=== PATIENT | male | born 1970 | race Caucasian/White ===

== ENCOUNTER 2017-07-27 10:30 | Inpatient (IN) | payer BC ==
[2017-07-27 13:43] VITALS: BMI 34.4
[2017-07-27 13:46] LABS: Basophils % (A) 0 %; Eosinophils # (A) 0.3 k/uL (0-0.7); Eosinophils % (A) 2 %; HCT 41.7 % (39.0-53.0); HGB 13.5 gm/dL (13.0-17.5); Lymphocytes # (A) 2.9 k/uL (1.0-4.8); Lymphocytes % (A) 21 %; MCH 29.2 pg (25.0-35.0); MCHC 32.5 g/dL (31.0-37.0); MCV 90.1 fL (80.0-100.0); Mean Platelet Volume 7.3; Monocytes # (A) 1.1 k/uL (0-1.0); Monocytes % (A) 8 %; Neutrophils # (A) 9.2 k/uL (1.3-7.7); Neutrophils % (A) 67 %; Platelet Count 570 k/uL (150-450); RBC 4.63 m/uL (4.30-5.90); RDW 13.3 % (11.5-15.5); WBC 13.6 k/uL (3.8-10.6)
[2017-07-27 13:54] LABS: ALT 45 U/L (21-72); AST 27 U/L (17-59); Albumin 3.4 g/dL (3.5-5.0); Alkaline Phosphatase 62 U/L (38-126); Anion Gap 13 mmol/L; Blood Urea Nitrogen 11 mg/dL (9-20); Calcium 8.6 mg/dL (8.4-10.2); Carbon Dioxide 29 mmol/L (22-30); Chloride 97 mmol/L (98-107); Glucose 109 mg/dL (74-99); Potassium 3.6 mmol/L (3.5-5.1); Sodium 139 mmol/L (137-145)
[2017-07-27] MEDS ORDERED: cefTRIAXone IN SWFI 1,000 MG/10 ML SYRINGE IVP SCH (14:30)
--- NOTE | 2017-07-27 14:30 | P.HPIM ---
History of Present Illness H&P Date: 07/27/17 Chief Complaint: coughing, flu like symptoms 47-year-old male who presented to his primary care physician, Dr. Gould's office today with a chief complaint of flulike symptoms, coughing, lethargy, and dry heaving. Patient states his symptoms started the Thursday before Mothers Day, which was 07/14/2017. Patient reports he took his son to urgent care on 07/19/2017 and his son was diagnosed with Influenza A. He tested negative at that time but was given a Tamiflu prescription. Patient finished Tamiflu regimen last week. The patient denies nausea. He reports dry heaves due to coughing. He states he has a lot of belching after he dry heaves. He states he was having fevers of 102-103 degrees F last week but reports he has been afebrile for the last 48 hours. Patient states he has a frequent cough with occasional sputum production. He states at times he has a hard time bringing up the sputum. He admits to decreased oral intake and states "everything tastes bad right now". Patient states he has been trying to drink water and Gatorade but reports it is probably not enough. Chest x-ray completed in Dr. Gould's office revealed large right middle lobe pneumonia. Influenza testing was completed and patient was positive for influenza A. He received 1 gram Rocephin IM at the office and blood cultures were obtained. The patient has a history of ITP and underwent splenectomy in 2006. His states he follows up with Dr. Luna and requires platelet transfusions approximately every 3-4 years. reports last transfusion was approximately three years ago. He was directly admitted to [facility]. Consultations were placed to Dr. Merino, pulmonary and Dr. Maria, infectious disease. Review of Systems GENERAL: Reports fevers of 102-103. Afebrile for last 24 hours per patient. EYES: Denies blurred vision. Denies vision changes. Denies eye pain. EARS, NOSE, MOUTH, & THROAT: Denies headache. Denies sore throat. Denies ear pain. RESPIRATORY: Positive for cough with occasional sputum production. Positive for occasional shortness of breath. Denies hemoptysis. CARDIOVASCULAR: Denies chest pain or pressure. Denies palpitations. Denies arrhythmias. GASTROINTESTINAL: Positive for mild abdominal pain that he relates to dry heaving. Denies diarrhea. Denies constipation. Denies blood in the stool. GENITOURINARY: Denies urinary frequency. Denies burning. Denies dysuria. Denies cloudy urine. Denies blood in the urine. MUSCULOSKELETAL: Denies myalgias. Denies joint swelling. Denies decreased range of motion beyond patients baseline. INTEGUMENTARY: Denies pruitis. Denies rash. PSYCHIATRIC: Denies suicidal or homicial ideations. ENDOCRINE: Positive for decreased oral intake. Denies weight change. Denies polydipsia. Denies polyuria. HEMATOLOGIC: Positive for history of ITP. Requires platelet transfusion every 3- 4 years per . Past Medical History - Past Family History Father Family Medical History: AFIB, AICD/Pacemaker, Cancer Additional Family Medical History / Comment(s): Prostate CA, skin CA Medications and Allergies Home Medications Medication Instructions Recorded Confirmed Type No Known Home Medications [No 07/27/17 07/27/17 History Known Home Medications] Allergies Allergy/AdvReac Type Severity Reaction Status Date / Time sulfamethoxazole Allergy Rash/Hives Verified 07/27/17 14:11 [From Bactrim] trimethoprim [From Bactrim] Allergy Rash/Hives Verified 07/27/17 14:11 Physical Exam GENERAL: This is a 47-year-old in no apparent distress at the time of examination, but appears to be feeling unwell. Pleasant and cooperative. HEENT: Head is atraumatic, normocephalic. Pupils are equal, round, and reactive to light. Sclerae anicteric. Conjunctivae are clear. Mucus membranes of the mouth are moist. Neck is supple. RESPIRATORY: Rhonchi noted. No crackles or wheezing auscultated. No use of accessory muscles. Patient maintaining oxygen saturation greater than 92% on room air. No chest wall tenderness is noted on palpation or with deep breathing. CARDIOVASCULAR: Regular rate and rhythm. S1 and S2 noted. No systolic or diastolic murmur auscultated. No JVD noted. No S3 or S4 noted. GASTROINTESTINAL: No distention noted. Abdomen soft and round. Normal active bowel sounds auscultated x 4 quadrants. No pain or tenderness noted upon palpation. INTEGUMENTARY: No cyanosis. No jaundice. No rashes noted. No cellulitis noted. EXTREMITIES: 2+ peripheral pulses. No evidence of peripheral edema. No calf tenderness noted. NEUROLOGIC: Cranial nerves II-XII intact. PSYCHIATRIC: Awake, alert, and oriented X 3. Appropriate affect. Intact judgement and insight. Results CBC & Chem 7: 07/27/17 13:35 07/27/17 13:35 Assessment and Plan Plan: ASSESSMENT: Right middle lobe pneumonia, present on admission, sputum culture pending Positive influenza A, completed Tamiflu course outpatient Suspected sepsis, secondary to pneumonia and influenza A History of ITP with splenectomy in 2006, follows up with Dr. Luna Obesity: BMI 34.5 PLAN: Consult pulmonary, Dr. Merino Consult infectious disease, Dr. Maria Case discussed with Dr. Maria. He would like blood cultures repeated, sputum culture, rocephin 2mg daily, and levaquin 500mg daily Patient already received Rocephin at PCP office today, will begin tomorrow. Levaquin can begin today. Patient completed Tamiflu as prescribed by urgent care Droplet precautions Mucinex to help loosen secretions Regular diet IVF at 100cc/hr CBC, CMP, and lactic acid STAT Home meds as appropriate-patient denies any home medications Monitor labs GI prophylaxis: Protonix 40 mg PO Daily DVT prophylaxis: Encourage ambulation. SCDs to bilateral lower extremities while in bed Monitor vital signs and address as appropriate Discharge planning: Patient to return home when stable Further recommendations pending patient's course Nurse practitioner note has been reviewed by physician. Signing provider agrees with the documented findings, assessment, and plan of care.
[2017-07-27] MEDS: ACETAMINOPHEN TAB 325 MG TAB PO PRN ×2 (14:41→21:57)
[2017-07-27] MEDS ORDERED: cefTRIAXone IN SWFI 2,000 MG/20 ML SYRINGE IVP SCH (15:00)
[2017-07-27] MEDS ORDERED: AZITHROMYCIN 500 MG in SODIUM CHLORIDE 0.9% 250 ML IVPB SCH (15:00)
[2017-07-27] MEDS ORDERED: LEVOFLOXACIN 500MG-D5W PMX 500 MG in DEXTROSE/WATER 1 100ML.BAG IVPB SCH (16:00)
--- NOTE | 2017-07-27 17:07 | P.CNPUL ---
History of Present Illness Consult date: 07/27/17 Reason for consult: dyspnea, cough, pneumonia, abnormal CXR/CT Chief complaint: Cough shortness of breath and a spiking fever History of present illness: 47-year-old male who was seen eval examined on fifth floor this patient has a significant history of splenectomy and ITP patient has not been feeling well for almost 2 weeks of increased cough congestion shortness of breath patient has a significant exposure influenza A however initially was negative but did receive a course of Tamiflu, patient continued to do not very well with 3 days prior to coming hospital had a spiking fever up to 102 with those problems was seen evaluated examined at primary care office where a chest x-ray were performed revealed large right midlung field consolidation patient has been admitted to hospital for further evaluation and intervention and treatment, patient did receive a dose of Rocephin in primary care's office, further workup and office revealed influenza A to be positive Patient denies any seizure-like activity loss of consciousness hemiparesis does have significant cough however denies any hemoptysis denies any chest pain or radiation of pain does have some abdominal discomfort and thoracic wall discomfort due to excessive coughing and heaving, denies any bowel or bladder dysfunction, due to ITP had a platelet transfusion over 3 years ago Review of Systems All systems: negative Past Medical History Additional Past Medical History / Comment(s): ITP History of Any Multi-Drug Resistant Organisms: None Reported Additional Past Surgical History / Comment(s): splenectomy 2006, tonsils removed , Past Anesthesia/Blood Transfusion Reactions: No Reported Reaction Past Psychological History: No Psychological Hx Reported Smoking Status: Never smoker - Past Family History Father Family Medical History: AFIB, AICD/Pacemaker, Cancer Additional Family Medical History / Comment(s): Prostate CA, skin CA Medications and Allergies Home Medications Medication Instructions Recorded Confirmed Type No Known Home Medications [No 07/27/17 07/27/17 History Known Home Medications] Allergies Allergy/AdvReac Type Severity Reaction Status Date / Time sulfamethoxazole Allergy Rash/Hives Verified 07/27/17 14:11 [From Bactrim] trimethoprim [From Bactrim] Allergy Rash/Hives Verified 07/27/17 14:11 Physical Exam Vitals: Vital Signs Temp Pulse Resp BP Pulse Ox 07/27/17 16:00 90 16 07/27/17 15:43 93 L 07/27/17 14:37 100.3 F H 90 16 139/86 98 07/27/17 13:26 99.4 F 97 16 125/86 97 07/27/17 13:17 97 Intake and Output 07/27/17 07/27/17 07/27/17 06:59 14:59 22:59 Other: Voiding Method Toilet Weight 142.428 kg - Constitutional General appearance: cooperative, disheveled, mild distress, obese - EENT Eyes: anicteric sclerae, EOMI, PERRLA, normal appearance ENT: normal oropharynx Ears: bilateral: normal - Neck Neck: normal ROM Carotids: bilateral: upstroke normal, bruit absent Thyroid: bilateral: normal size - Respiratory Respiratory: right: rales, rhonchi - Cardiovascular Heart sounds: normal: S1, S2 - Gastrointestinal General gastrointestinal: normal bowel sounds, soft - Integumentary Integumentary: normal, normal turgor - Neurologic Neurologic: CNII-XII intact - Musculoskeletal Musculoskeletal: gait normal, generalized weakness, strength equal bilaterally - Psychiatric Psychiatric: A&O x's 3, appropriate affect, intact judgment & insight Results - Laboratory Findings CBC and BMP: 07/27/17 13:35 07/27/17 13:35 Abnormal lab findings: Abnormal Labs 07/27/17 07/27/17 13:35 13:35 WBC 13.6 H Plt Count 570 H Neutrophils # 9.2 H Monocytes # 1.1 H Chloride 97 L Glucose 109 H Total Protein 6.0 L Albumin 3.4 L - Diagnostic Findings Chest x-ray: report reviewed Assessment and Plan Assessment: Sepsis associated with right mid lung field pneumonia Right midlung field pneumonia may very well be associated with staph aureus or streptococcal pneumonia however gram-negative involvement cannot be excluded Influenza A pneumonia ITP History of splenectomy Plan: Gentle rehydration High-dose IV Rocephin Repeat chest x-ray tomorrow Bronchodilators as needed Further recommendations pending plan of care as per clinical response of the patient O follow clinical course closely Time with Patient: Greater than 30
[2017-07-27] MEDS ORDERED: OSELTAMIVIR 75 MG CAP PO SCH (21:00)
[2017-07-27] MEDS: guaiFENesin 600 MG TABLET.ER PO SCH (21:49)
[2017-07-28] MEDS: ALBUTEROL NEBULIZED 2.5 MG/3 ML INHALATION PRN (04:46)
[2017-07-28] MEDS: ACETAMINOPHEN TAB 325 MG TAB PO PRN ×2 (05:04→12:56)
[2017-07-28] MEDS: SODIUM CHLORIDE 0.9% 1,000 ML IV SCH ×4 (05:05→20:45)
[2017-07-28] MEDS: PANTOPRAZOLE 40 MG TABLET PO SCH (07:33)
[2017-07-28] MEDS: guaiFENesin 600 MG TABLET.ER PO SCH ×2 (07:33→21:36)
--- NOTE | 2017-07-28 07:52 | XR ---
EXAMINATION TYPE: XR chest 2V DATE OF EXAM: 07/28/2017 COMPARISON: NONE HISTORY: Shortness of breath and pneumonia TECHNIQUE: Frontal and lateral views of the chest are obtained. FINDINGS: Increased attenuation is present in the right upper lobe. No pneumothorax or pleural effus ion. Patchy basilar density also noted, lung volumes are low. Cardiac mediastinal silhouette, pulmona ry vascularity and ailyn are within normal limits. IMPRESSION: Findings may be indicative of pneumonia, basilar atelectasis, difficult to exclude small effusion, follow-up to resolution.
[2017-07-28] MEDS ORDERED: ZOLPIDEM 5 MG TAB PO PRN (08:41)
[2017-07-28] MEDS ORDERED: cefTRIAXone IN SWFI 2,000 MG/20 ML SYRINGE IVP SCH (09:00)
[2017-07-28 09:28] LABS: Basophils % (A) 0 %; Eosinophils # (A) 0.2 k/uL (0-0.7); Eosinophils % (A) 2 %; HCT 38.9 % (39.0-53.0); HGB 12.8 gm/dL (13.0-17.5); Lymphocytes # (A) 1.8 k/uL (1.0-4.8); Lymphocytes % (A) 14 %; MCH 29.6 pg (25.0-35.0); MCHC 32.9 g/dL (31.0-37.0); Mean Platelet Volume 7.3; Monocytes # (A) 0.9 k/uL (0-1.0); Monocytes % (A) 7 %; Neutrophils # (A) 9.8 k/uL (1.3-7.7); Neutrophils % (A) 76 %; Platelet Count 571 k/uL (150-450); RBC 4.32 m/uL (4.30-5.90); RDW 13.3 % (11.5-15.5); WBC 12.9 k/uL (3.8-10.6)
--- NOTE | 2017-07-28 09:34 | P.PN ---
Subjective Progress Note Date: 07/28/17 47-year-old male who presented to his primary care physician, Dr. Gould's office today with a chief complaint of flulike symptoms, coughing, lethargy, and dry heaving. Patient states his symptoms started the Thursday before Day, which was 07/14/2017. Patient reports he took his son to urgent care on 07/19/2017 and his son was diagnosed with Influenza A. He tested negative at that time but was given a Tamiflu prescription. Patient finished Tamiflu regimen last week. The patient denies nausea. He reports dry heaves due to coughing. He states he has a lot of belching after he dry heaves. He states he was having fevers of 102-103 degrees F last week but reports he has been afebrile for the last 48 hours. Patient states he has a frequent cough with occasional sputum production. He states at times he has a hard time bringing up the sputum. He admits to decreased oral intake and states "everything tastes bad right now". Patient states he has been trying to drink water and Gatorade but reports it is probably not enough. Chest x-ray completed in Dr. Gould's office revealed large right middle lobe pneumonia. Influenza testing was completed and patient was positive for influenza A. He received 1 gram Rocephin IM at the office and blood cultures were obtained. The patient has a history of ITP and underwent splenectomy in 2006. His states he follows up with Dr. Luna and requires platelet transfusions approximately every 3-4 years. reports last transfusion was approximately three years ago. He was directly admitted to [facility]. Consultations were placed to Dr. Merino, pulmonary and Dr. Maria, infectious disease. 07/28/2017 Patient seen and examined at the bedside on rounds with Dr. Gould. Patient is awake and alert. Sitting up at the bedside. Patient states he had a "rough night " and was unable to sleep very much due to coughing. He is requesting something to help him sleep tonight. Patient is afebrile this morning. Blood pressure 124/ 68. Oxygen saturation greater than 92% on room air. Incentive spirometer is at the bedside and patient is using 10 times an hour. Pulling at least 2000cc. Blood cultures and sputum cultures are pending. He remains on Levaquin and Rocephin. Objective - Vital Signs Vital signs: Vital Signs Temp 97.8 F 07/28/17 08:18 Pulse 89 07/28/17 08:18 Resp 20 07/28/17 08:18 BP 124/68 07/28/17 08:18 Pulse Ox 93 L 07/28/17 08:18 Intake & Output 07/27/17 07/28/17 07/28/17 18:59 06:59 18:59 Intake Total 2200 Balance 2200 Weight 142.428 kg Intake: Intake, IV Titration 1600 Amount Sodium Chloride 0.9% 1, 1600 000 ml @ 100 mls/hr IV . Q10H WENDIE Rx#:[id number] Oral 600 Other: Voiding Method Toilet Toilet # Voids 2 - Exam GENERAL: This is a 47-year-old in no apparent distress at the time of examination, but appears to be feeling unwell. Pleasant and cooperative. HEENT: Head is atraumatic, normocephalic. Pupils are equal, round, and reactive to light. Sclerae anicteric. Conjunctivae are clear. Mucus membranes of the mouth are moist. Neck is supple. RESPIRATORY: Diminished lung sounds over right middle lung. No crackles or wheezing auscultated. No use of accessory muscles. Patient maintaining oxygen saturation greater than 92% on room air. No chest wall tenderness is noted on palpation or with deep breathing. CARDIOVASCULAR: Regular rate and rhythm. S1 and S2 noted. No systolic or diastolic murmur auscultated. No JVD noted. No S3 or S4 noted. GASTROINTESTINAL: No distention noted. Abdomen soft and round. Normal active bowel sounds auscultated x 4 quadrants. No pain or tenderness noted upon palpation. INTEGUMENTARY: No cyanosis. No jaundice. No rashes noted. No cellulitis noted. EXTREMITIES: 2+ peripheral pulses. No evidence of peripheral edema. No calf tenderness noted. NEUROLOGIC: Cranial nerves II-XII intact. PSYCHIATRIC: Awake, alert, and oriented X 3. Appropriate affect. Intact judgement and insight. - Labs CBC & Chem 7: 07/27/17 13:35 07/27/17 13:35 Labs: Abnormal Lab Results - Last 24 Hours (Table) 07/27/17 07/27/17 Range/Units 13:35 13:35 WBC 13.6 H (3.8-10.6) k/uL Plt Count 570 H (150-450) k/uL Neutrophils # 9.2 H (1.3-7.7) k/uL Monocytes # 1.1 H (0-1.0) k/uL Chloride 97 L (98-107) mmol/L Glucose 109 H (74-99) mg/dL Total Protein 6.0 L (6.3-8.2) g/dL Albumin 3.4 L (3.5-5.0) g/dL Assessment and Plan Plan: ASSESSMENT: Right middle lobe pneumonia, present on admission, sputum culture pending Positive influenza A, completed Tamiflu course outpatient Suspected sepsis, secondary to pneumonia and influenza A History of ITP with splenectomy in 2006, follows up with Dr. Luna Obesity: BMI 34.5 PLAN: Pulmonary on consult. Appreciate recommendations and input Infectious disease, Dr. Maria, on consult. Appreciate recommendations and input Antibiotic regimen per Dr. Maria: Currently on Rocephin and Levaquin. Await results of blood cultures and sputum cultures Patient completed Tamiflu as prescribed by urgent care Droplet precautions Mucinex to help loosen secretions IVF at 100cc/hr Ambien 5mg HS PRN for insomnia Patient requesting cough suppressant. Patient encouraged to cough to help eliminate sputum buildup. Toradol PRN for pain/discomfort IS 10 times an hour while awake Home meds as appropriate-patient denies any home medications Monitor labs GI prophylaxis: Protonix 40 mg PO Daily DVT prophylaxis: Encourage ambulation. SCDs to bilateral lower extremities while in bed Monitor vital signs and address as appropriate Discharge planning: Patient to return home when stable Further recommendations pending patient's course Nurse practitioner note has been reviewed by physician. Signing provider agrees with the documented findings, assessment, and plan of care.
[2017-07-28 09:36] LABS: Anion Gap 10 mmol/L; Blood Urea Nitrogen 8 mg/dL (9-20); Calcium 7.9 mg/dL (8.4-10.2); Carbon Dioxide 27 mmol/L (22-30); Chloride 100 mmol/L (98-107); Glucose 124 mg/dL (74-99); Potassium 3.9 mmol/L (3.5-5.1); Sodium 137 mmol/L (137-145)
[2017-07-28] MEDS ORDERED: VANCOMYCIN IV PER PHARMACY 1 EACH MISC MISCELLANE PRN (13:38)
[2017-07-28] MEDS ORDERED: BENZONATATE 100 MG CAP PO PRN (14:00)
[2017-07-28] MEDS: KETOROLAC 30 MG/ML 1 ML VIAL IVP PRN (14:15)
[2017-07-28] MEDS: LEVOFLOXACIN 500 MG TAB PO SCH (14:16)
[2017-07-28] MEDS ORDERED: VANCOMYCIN 2,500 MG in SODIUM CHLORIDE 0.9% 500 ML IVPB ONE (14:30)
--- NOTE | 2017-07-28 15:48 | CT ---
EXAMINATION TYPE: CT chest wo con DATE OF EXAM: 07/28/2017 COMPARISON: Chest x-ray same date HISTORY: Cough and left lung mass. CT DLP: 892 mGycm. Automated Exposure Control for Dose Reduction was Utilized. TECHNIQUE: CT scan of the thorax is performed without IV contrast. FINDINGS: Lack of contrast may compromise sensitivity. LUNGS: There is abnormal density in the right upper lobe, there are some air bronchograms present, so mewhat nodular appearance is present due to an associated soft tissue density which extends to the pl eura and is in association with the area of consolidation and air bronchograms. Some dependent atelec tatic changes are present at the left lung base. MEDIASTINUM: Lack of IV contrast is noted to limit evaluation for mediastinal and especially hilar ad enopathy. Difficult to exclude hilar adenopathy. Subcarinal lymph node appears enlarged. Shotty nodes are present in the mediastinum. No cardiomegaly or pericardial effusion is seen. OTHER: There is a right pleural effusion present. Some calcifications are present in the right hilum. Coronary artery calcifications are also noted. Upper abdomen shows distortion of the kidneys, there are calcifications associated bilaterally. Cysti c focus is present within the right lobe of the liver approximately 8 mm. Suspect prior splenectomy, splenule is thought present in the left upper quadrant IMPRESSION: Right upper lobe pneumonia, parapneumonic effusion, difficult to exclude an underlying ma ss. Possible granulomatous disease. Bilateral nephrolithiasis. Noncontrast exam.
[2017-07-28] MEDS ORDERED: PIPERACILLIN-TAZOBACTAM 3.375 GM in DEXTROSE/WATER 1 50ML.BAG IVPB SCH (16:00)
[2017-07-28] MEDS: PIPERACILLIN-TAZOBACTAM 3.375 GM in DEXTROSE/WATER 1 50ML.BAG IVPB SCH (17:40)
[2017-07-28] MEDS: guaiFENesin-DM 100-10MG/5ML 10 ML CUP PO SCH (20:40)
[2017-07-28] MEDS: VANCOMYCIN 2,000 MG in SODIUM CHLORIDE 0.9% 500 ML IVPB SCH (23:12)
--- NOTE | 2017-07-28 23:33 | CONS ---
CONSULTATION DATE OF SERVICE: 07/28/2017. REASON FOR CONSULTATION: Pneumonia. HISTORY OF PRESENT ILLNESS: The patient is a 47-year-old who started feeling sick about 2 weeks ago. Symptoms has been mostly related to URI complaints, some nasal congestion, wheezing, sneezing, cough sore throat. He did have a cough but not bringing up any sputum. The patient was seen at the local Urgent Care more than a week ago. The patient did have a influenza testing, though it was negative. However, the patient's he did receive 4 days of Tamiflu. While taking the Tamiflu, the patient said his symptoms improved and he ended up going to work over the weekend. However, the patient's symptoms started getting worse. He started having dry heaves, fever 103 Fahrenheit. The patient did have a cough productive of some harper sputum. Cough has been moderate in intensity, shortness of breath and chest pain whenever he takes a deep breath or cough. With these symptoms, the patient was evaluated by his primary care physician in the office. Yesterday the patient did have a chest x-ray completed which does shows right middle lobe pneumonia. was positive for influenza A. The patient subsequently has been admitted to the hospital directly. The patient was started on Rocephin 2 g daily after discussion of the case with me by the nurse practitioner. The patient did have a fever of 100.3 yesterday. Afebrile this morning. However, at the time of my evaluation, the patient not feeling improved compared to yesterday. Continues to be complaining of shortness of breath. Did have a cough and bringing up sputum and pleuritic chest pain. Some nausea but no vomiting. Diarrhea off and on. REVIEW OF SYSTEMS: CONSTITUTIONAL: Positive for weakness along with the fever. Eyes: No complaint. ENT as per HPI. RESPIRATORY: As per HPI. CARDIOVASCULAR: No complaint. Genitourinary no complaint. Gastrointestinal as per HPI. MUSCULOSKELETAL: No complaint. Integumentary: No complaint. PSYCHOLOGICAL: No complaint. NEUROLOGICAL: No complaint. PAST MEDICAL HISTORY: Significant for a ITP. PAST SURGICAL HISTORY: Splenectomy back in 2006. FAMILY HISTORY: Father with history of and skin cancer along with A. fib. SOCIAL HISTORY: Denies smoking, drinking, or drug use. ALLERGIES: MEDICATIONS: Include the patient currently on: 1. Tylenol. 2. Ventolin. 3. . 4. Robitussin DM. 5. Toradol. 6. Levaquin. 7. Protonix. 8. Ambien. EXAMINATION: Blood pressure 122/57, with a pulse of 83, temperature 97. He is 92% on room air. General description is a middle-aged male lying in bed in no distress. No tachypnea. No accessory muscles of respiration use. HEENT examination: No pallor or scleral icterus. Oral mucosa is moist. Neck: Trachea central. No thyromegaly. Lungs unlabored breathing. Coarse breath sounds bilaterally. No wheeze. Heart S1-S2 regular rate and rhythm. Abdomen soft. No tenderness. Extremities: No edema of the feet. Skin examination: No rash or mass palpable. Neurologically: Patient is awake, alert, oriented times three. Mood and affect normal. LABS: Hemoglobin 12.2, white count 12.9, admission white count 13.6, BUN of 8, creatinine 0.81. Blood cultures, sputum culture currently pending. Chest x-ray report as mentioned above. DIAGNOSTIC IMPRESSION AND PLAN: Patient admitted to the hospital with a fever. The patient symptoms preceded by URI symptoms and has been diagnosed and treated for influenza now with post influenza pneumonia, which can be sometimes related to resistant gram positive as well as gram- negative pathogen with MRSA in a patient who also has a history of splenectomy and high risk of infection with encapsulated pathogen with post splenectomy vaccination history not available at this point. The patient did not show any significant improvement with Rocephin and Levaquin that was started yesterday. PLAN: 1. We will discontinue Rocephin. 2. Start the patient on Zosyn 3.37, along with vancomycin pharmacy to dose target of 15. 3. Depending upon his clinical response as well as cultures will adjust medications further if needed. Thank you for this consultation. Will follow this patient along with you. MMODL / IJN: [id number] /
[2017-07-29] MEDS: PIPERACILLIN-TAZOBACTAM 3.375 GM in DEXTROSE/WATER 1 50ML.BAG IVPB SCH ×3 (02:57→18:44)
[2017-07-29] MEDS: SODIUM CHLORIDE 0.9% 1,000 ML IV SCH (03:51)
[2017-07-29] MEDS: ACETAMINOPHEN TAB 325 MG TAB PO PRN ×2 (06:08→11:33)
[2017-07-29] MEDS: VANCOMYCIN 2,000 MG in SODIUM CHLORIDE 0.9% 500 ML IVPB SCH ×3 (07:10→23:18)
[2017-07-29 08:14] LABS: Basophils % (A) 0 %; Eosinophils # (A) 0.4 k/uL (0-0.7); Eosinophils % (A) 3 %; HCT 37.7 % (39.0-53.0); HGB 12.5 gm/dL (13.0-17.5); Lymphocytes # (A) 1.7 k/uL (1.0-4.8); Lymphocytes % (A) 13 %; MCH 29.8 pg (25.0-35.0); MCHC 33.3 g/dL (31.0-37.0); MCV 89.6 fL (80.0-100.0); Mean Platelet Volume 7.1; Monocytes # (A) 0.9 k/uL (0-1.0); Monocytes % (A) 7 %; Neutrophils # (A) 9.7 k/uL (1.3-7.7); Neutrophils % (A) 75 %; Platelet Count 592 k/uL (150-450); RBC 4.21 m/uL (4.30-5.90); RDW 13.2 % (11.5-15.5); WBC 12.9 k/uL (3.8-10.6)
[2017-07-29] MEDS: guaiFENesin 600 MG TABLET.ER PO SCH ×2 (08:23→21:07)
[2017-07-29] MEDS: guaiFENesin-DM 100-10MG/5ML 10 ML CUP PO SCH ×2 (08:23→21:07)
[2017-07-29] MEDS: PANTOPRAZOLE 40 MG TABLET PO SCH (08:23)
[2017-07-29 08:29] LABS: Blood Urea Nitrogen 7 mg/dL (9-20); Calcium 8.1 mg/dL (8.4-10.2); Carbon Dioxide 26 mmol/L (22-30); Chloride 103 mmol/L (98-107); Glucose 98 mg/dL (74-99); Potassium 4.1 mmol/L (3.5-5.1)
[2017-07-29 08:41] LABS: Anion Gap 12 mmol/L; Sodium 141 mmol/L (137-145)
--- NOTE | 2017-07-29 10:47 | P.PN ---
Subjective Progress Note Date: 07/29/17 47-year-old male who presented to his primary care physician, Dr. Gould's office today with a chief complaint of flulike symptoms, coughing, lethargy, and dry heaving. Patient states his symptoms started the Thursday before Day, which was 07/14/2017. Patient reports he took his son to urgent care on 07/19/2017 and his son was diagnosed with Influenza A. He tested negative at that time but was given a Tamiflu prescription. Patient finished Tamiflu regimen last week. The patient denies nausea. He reports dry heaves due to coughing. He states he has a lot of belching after he dry heaves. He states he was having fevers of 102-103 degrees F last week but reports he has been afebrile for the last 48 hours. Patient states he has a frequent cough with occasional sputum production. He states at times he has a hard time bringing up the sputum. He admits to decreased oral intake and states "everything tastes bad right now". Patient states he has been trying to drink water and Gatorade but reports it is probably not enough. Chest x-ray completed in Dr. Gould's office revealed large right middle lobe pneumonia. Influenza testing was completed and patient was positive for influenza A. He received 1 gram Rocephin IM at the office and blood cultures were obtained. The patient has a history of ITP and underwent splenectomy in 2006. His states he follows up with Dr. Luna and requires platelet transfusions approximately every 3-4 years. reports last transfusion was approximately three years ago. He was directly admitted to [facility]. Consultations were placed to Dr. Merino, pulmonary and Dr. Maria, infectious disease. 07/28/2017 Patient seen and examined at the bedside on rounds with Dr. Gould. Patient is awake and alert. Sitting up at the bedside. Patient states he had a "rough night " and was unable to sleep very much due to coughing. He is requesting something to help him sleep tonight. Patient is afebrile this morning. Blood pressure 124/ 68. Oxygen saturation greater than 92% on room air. Incentive spirometer is at the bedside and patient is using 10 times an hour. Pulling at least 2000cc. Blood cultures and sputum cultures are pending. He remains on Levaquin and Rocephin. 07/29/2017 Patient seen and examined at the the bedside on rounds with Dr. Gould. Patient is awake and alert. Sitting up in bed. Patient states he had a better night last night and was able to get some sleep. He complains of a dry mouth. He continues to have a frequent cough. CT of the chest was performed yesterday without contrast revealing right upper lobe pneumonia, parapneumonic effusion, difficult to exclude an underlying mass. Possible granulomatosis disease. Dr. Merino, pulmonary, remains on consult. The patient was seen and evaluated by infectious disease, Dr. Maria. He was started on Zosyn and vancomycin. WBC this morning is 12.9. Patient continues to have low-grade fevers. Temperature this morning is 99.7F. Mildly tachycardic with a heart rate of 102. Blood pressure is stable at 137/82. He is on room air with an oxygen saturation of 92 %. Blood cultures are negative at the 24 hour fran. Sputum culture is in progress. Objective - Vital Signs Vital signs: Vital Signs Temp 99.7 F H 07/29/17 06:24 Pulse 102 H 07/29/17 06:24 Resp 18 07/29/17 06:24 BP 137/82 07/29/17 06:24 Pulse Ox 92 L 07/29/17 06:24 Intake & Output 07/28/17 07/29/17 07/29/17 18:59 06:59 18:59 Intake Total 800 345 Balance 800 345 Intake: Intake, IV Titration 800 345 Amount Piperacillin-Tazobactam 3 45 .375 gm In Dextrose/Water 1 50ml.bag @ 12.5 mls/hr IVPB Q8HR [facility] Rx#: [id number] Sodium Chloride 0.9% 1, 800 300 000 ml @ 100 mls/hr IV . Q10H [facility] Rx#:[id number] Other: Voiding Method Toilet # Voids 1 - Exam GENERAL: This is a 47-year-old in no apparent distress at the time of examination, but appears to be feeling unwell. Pleasant and cooperative. HEENT: Head is atraumatic, normocephalic. Pupils are equal, round, and reactive to light. Sclerae anicteric. Conjunctivae are clear. Mucus membranes of the mouth are moist. Neck is supple. RESPIRATORY: Diminished breath sounds on the right middle and upper lobe monahan with fine crackles and rhonchi noted. No wheezing noted. No use of accessory muscles. Patient maintaining oxygen saturation greater than 92% on room air. No chest wall tenderness is noted on palpation or with deep breathing. CARDIOVASCULAR: Regular rate and rhythm. S1 and S2 noted. No systolic or diastolic murmur auscultated. No JVD noted. No S3 or S4 noted. GASTROINTESTINAL: No distention noted. Abdomen soft and round. Normal active bowel sounds auscultated x 4 quadrants. No pain or tenderness noted upon palpation. INTEGUMENTARY: No cyanosis. No jaundice. No rashes noted. No cellulitis noted. EXTREMITIES: 2+ peripheral pulses. No evidence of peripheral edema. No calf tenderness noted. NEUROLOGIC: Cranial nerves II-XII intact. PSYCHIATRIC: Awake, alert, and oriented X 3. Appropriate affect. Intact judgement and insight. - Labs CBC & Chem 7: 07/29/17 07:43 07/29/17 07:43 Labs: Abnormal Lab Results - Last 24 Hours (Table) 07/29/17 07/29/17 Range/Units 07:43 07:43 WBC 12.9 H (3.8-10.6) k/uL RBC 4.21 L (4.30-5.90) m/uL Hgb 12.5 L (13.0-17.5) gm/dL Hct 37.7 L (39.0-53.0) % Plt Count 592 H (150-450) k/uL Neutrophils # 9.7 H (1.3-7.7) k/uL BUN 7 L (9-20) mg/dL Calcium 8.1 L (8.4-10.2) mg/dL Microbiology - Last 24 Hours (Table) 07/28/17 04:51 Gram Stain - Preliminary Sputum 07/27/17 15:19 Blood Culture - Preliminary Blood No Growth after 24 hours 07/27/17 13:35 Blood Culture - Preliminary Blood No Growth after 24 hours Assessment and Plan Plan: ASSESSMENT: Right middle lobe/upper lobe pneumonia, post influenza, present on admission, sputum culture pending Positive influenza A, completed Tamiflu course outpatient Sepsis, secondary to pneumonia and influenza A History of ITP with splenectomy in 2006, follows up with Dr. Luna Obesity: BMI 34.5 PLAN: Pulmonary on consult. Appreciate recommendations and input Infectious disease, Dr. Maria, on consult. Appreciate recommendations and input Antibiotic regimen per Dr. Maria: Currently on Zosyn and Vanco Await results of blood cultures and sputum cultures Patient completed Tamiflu as prescribed by urgent care Droplet precautions Mucinex to help loosen secretions Decrease IV fluids to 50cc/hr Ambien 5mg HS PRN for insomnia Toradol PRN for pain/discomfort IS 10 times an hour while awake Home meds as appropriate-patient denies any home medications Monitor labs GI prophylaxis: Protonix 40 mg PO Daily DVT prophylaxis: Encourage ambulation. SCDs to bilateral lower extremities while in bed Monitor vital signs and address as appropriate Discharge planning: Patient to return home when stable Further recommendations pending patient's course Nurse practitioner note has been reviewed by physician. Signing provider agrees with the documented findings, assessment, and plan of care.
--- NOTE | 2017-07-29 12:04 | P.PN ---
Subjective Progress Note Date: 07/28/17 (Late entry note) Principal diagnosis: Left-sided pneumonia with sepsis, left-sided pleuritic chest wall pain, asplenia , history of ITP, morbid obesity 07/28/2017, patient seen eval examined during the rounds clinically still have issues a serious significant shortness of breath and pleuritic chest pain patient has a significant degree or dry nonproductive cough sometimes is associated with thick tenacious sputum production, patient has been complaining of new right lower flank pain with some pleuritic component and point tenderness. He denies any hemoptysis he remains significantly restless related to breathing issues coughing and chest tightness and pain have discussed with the staff at length will start patient on Toradol, Tessalon Perles as well as Tussionex cough syrup we'll continue broad-spectrum antibiotics, 47-year-old male who was seen eval examined on fifth floor this patient has a significant history of splenectomy and ITP patient has not been feeling well for almost 2 weeks of increased cough congestion shortness of breath patient has a significant exposure influenza A however initially was negative but did receive a course of Tamiflu, patient continued to do not very well with 3 days prior to coming hospital had a spiking fever up to 102 with those problems was seen evaluated examined at primary care office where a chest x-ray were performed revealed large right midlung field consolidation patient has been admitted to hospital for further evaluation and intervention and treatment, patient did receive a dose of Rocephin in primary care's office, further workup and office revealed influenza A to be positive Patient denies any seizure-like activity loss of consciousness hemiparesis does have significant cough however denies any hemoptysis denies any chest pain or radiation of pain does have some abdominal discomfort and thoracic wall discomfort due to excessive coughing and heaving, denies any bowel or bladder dysfunction, due to ITP had a platelet transfusion over 3 years ago Objective - Vital Signs Vital signs: Vital Signs Temp 99.7 F H 07/29/17 06:24 Pulse 102 H 07/29/17 06:24 Resp 18 07/29/17 06:24 BP 137/82 07/29/17 06:24 Pulse Ox 92 L 07/29/17 06:24 Intake & Output 07/28/17 07/29/17 07/29/17 18:59 06:59 18:59 Intake Total 800 345 Balance 800 345 Intake: Intake, IV Titration 800 345 Amount Piperacillin-Tazobactam 3 45 .375 gm In Dextrose/Water 1 50ml.bag @ 12.5 mls/hr IVPB Q8HR [facility] Rx#: [id number] Sodium Chloride 0.9% 1, 800 300 000 ml @ 100 mls/hr IV . Q10H [facility] Rx#:[id number] Other: Voiding Method Toilet # Voids 1 - Exam - Constitutional General appearance: cooperative, disheveled, mild distress, obese - EENT Eyes: anicteric sclerae, EOMI, PERRLA, normal appearance ENT: normal oropharynx Ears: bilateral: normal - Neck Neck: normal ROM Carotids: bilateral: upstroke normal, bruit absent Thyroid: bilateral: normal size - Respiratory Respiratory: right: rales, rhonchi - Cardiovascular Heart sounds: normal: S1, S2 - Gastrointestinal General gastrointestinal: normal bowel sounds, soft - Integumentary Integumentary: normal, normal turgor - Neurologic Neurologic: CNII-XII intact - Musculoskeletal Musculoskeletal: gait normal, generalized weakness, strength equal bilaterally - Psychiatric Psychiatric: A&O x's 3, appropriate affect, intact judgment & insight - Labs CBC & Chem 7: 07/29/17 07:43 07/29/17 07:43 Labs: Abnormal Lab Results - Last 24 Hours (Table) 07/29/17 07/29/17 Range/Units 07:43 07:43 WBC 12.9 H (3.8-10.6) k/uL RBC 4.21 L (4.30-5.90) m/uL Hgb 12.5 L (13.0-17.5) gm/dL Hct 37.7 L (39.0-53.0) % Plt Count 592 H (150-450) k/uL Neutrophils # 9.7 H (1.3-7.7) k/uL BUN 7 L (9-20) mg/dL Calcium 8.1 L (8.4-10.2) mg/dL Microbiology - Last 24 Hours (Table) 07/28/17 04:51 Gram Stain - Preliminary Sputum 07/27/17 15:19 Blood Culture - Preliminary Blood No Growth after 24 hours 07/27/17 13:35 Blood Culture - Preliminary Blood No Growth after 24 hours Assessment and Plan Assessment: Sepsis associated with right mid lung field pneumonia Right midlung field pneumonia may very well be associated with staph aureus or streptococcal pneumonia however gram-negative involvement cannot be excluded Complicated pneumonia with a right pleural effusion Influenza A pneumonia ITP History of splenectomy Plan: Gentle rehydration High-dose IV Rocephin Will obtain a computed tomography scan of his chest to look into details of pneumonia as well as to look into developing pleural effusion Bronchodilators as needed Further recommendations pending plan of care as per clinical response of the patient O follow clinical course closely Time with Patient: Greater than 30
--- NOTE | 2017-07-29 12:12 | P.PN ---
Subjective Progress Note Date: 07/29/17 Principal diagnosis: Bilateral multi lobar pneumonia with sepsis, left-sided pleuritic chest wall pain, asplenia, history of ITP, morbid obesity 07/29/2017, patient seen eval examined during the rounds clinically patient is slightly better the flank pain that was noted yesterday has improved significantly patient cough congestion is still present but severity is slightly better able to get some sleep last night, patient remains on broad- spectrum antibiotics along with breathing treatments the computed tomography scan of the chest reviewed there is a dense consolidation in the right mid lung field is seen along with infiltrate in the left lower lobe as well as right lower lobe very small pleural effusion is seen not enough to tap likely related to reactive related to pneumonia, labs reviewed medications reviewed, leukocytosis slightly better 07/28/2017, patient seen eval examined during the rounds clinically still have issues a serious significant shortness of breath and pleuritic chest pain patient has a significant degree or dry nonproductive cough sometimes is associated with thick tenacious sputum production, patient has been complaining of new right lower flank pain with some pleuritic component and point tenderness. He denies any hemoptysis he remains significantly restless related to breathing issues coughing and chest tightness and pain have discussed with the staff at length will start patient on Toradol, Tessalon Perles as well as Tussionex cough syrup we'll continue broad-spectrum antibiotics, 47-year-old male who was seen eval examined on fifth floor this patient has a significant history of splenectomy and ITP patient has not been feeling well for almost 2 weeks of increased cough congestion shortness of breath patient has a significant exposure influenza A however initially was negative but did receive a course of Tamiflu, patient continued to do not very well with 3 days prior to coming hospital had a spiking fever up to 102 with those problems was seen evaluated examined at primary care office where a chest x-ray were performed revealed large right midlung field consolidation patient has been admitted to hospital for further evaluation and intervention and treatment, patient did receive a dose of Rocephin in primary care's office, further workup and office revealed influenza A to be positive Patient denies any seizure-like activity loss of consciousness hemiparesis does have significant cough however denies any hemoptysis denies any chest pain or radiation of pain does have some abdominal discomfort and thoracic wall discomfort due to excessive coughing and heaving, denies any bowel or bladder dysfunction, due to ITP had a platelet transfusion over 3 years ago Objective - Vital Signs Vital signs: Vital Signs Temp 99.7 F H 07/29/17 06:24 Pulse 102 H 07/29/17 06:24 Resp 18 07/29/17 06:24 BP 137/82 07/29/17 06:24 Pulse Ox 92 L 07/29/17 06:24 Intake & Output 07/28/17 07/29/17 07/29/17 18:59 06:59 18:59 Intake Total 800 345 Balance 800 345 Intake: Intake, IV Titration 800 345 Amount Piperacillin-Tazobactam 3 45 .375 gm In Dextrose/Water 1 50ml.bag @ 12.5 mls/hr IVPB Q8HR [facility] Rx#: [id number] Sodium Chloride 0.9% 1, 800 300 000 ml @ 100 mls/hr IV . Q10H [facility] Rx#:[id number] Other: Voiding Method Toilet # Voids 1 - Exam - Constitutional General appearance: cooperative, disheveled, mild distress, obese - EENT Eyes: anicteric sclerae, EOMI, PERRLA, normal appearance ENT: normal oropharynx Ears: bilateral: normal - Neck Neck: normal ROM Carotids: bilateral: upstroke normal, bruit absent Thyroid: bilateral: normal size - Respiratory Respiratory: Bilateral: rales, rhonchi slightly improved on today's exam compared to yesterday - Cardiovascular Heart sounds: normal: S1, S2 - Gastrointestinal General gastrointestinal: normal bowel sounds, soft - Integumentary Integumentary: normal, normal turgor - Neurologic Neurologic: CNII-XII intact - Musculoskeletal Musculoskeletal: gait normal, generalized weakness, strength equal bilaterally - Psychiatric Psychiatric: A&O x's 3, appropriate affect, intact judgment & insight - Labs CBC & Chem 7: 07/29/17 07:43 07/29/17 07:43 Labs: Abnormal Lab Results - Last 24 Hours (Table) 07/29/17 07/29/17 Range/Units 07:43 07:43 WBC 12.9 H (3.8-10.6) k/uL RBC 4.21 L (4.30-5.90) m/uL Hgb 12.5 L (13.0-17.5) gm/dL Hct 37.7 L (39.0-53.0) % Plt Count 592 H (150-450) k/uL Neutrophils # 9.7 H (1.3-7.7) k/uL BUN 7 L (9-20) mg/dL Calcium 8.1 L (8.4-10.2) mg/dL Microbiology - Last 24 Hours (Table) 07/28/17 04:51 Gram Stain - Preliminary Sputum 07/27/17 15:19 Blood Culture - Preliminary Blood No Growth after 24 hours 07/27/17 13:35 Blood Culture - Preliminary Blood No Growth after 24 hours Assessment and Plan Assessment: Sepsis associated with right mid lung field pneumonia and multi lobar pneumonia as noted on computed tomography scan Right-sided parapneumonic effusion Right midlung field mass likely pneumonia however occult neoplasm cannot be excluded Complicated pneumonia with a right pleural effusion Influenza A pneumonia ITP History of splenectomy Plan: Gentle rehydration High-dose IV Rocephin Reviewed computed tomography scan of his chest to look into details of pneumonia as well as to look into developing pleural effusion, patient will need a follow-up radiographic studies to document resolution and short-term basis Bronchodilators as needed Further recommendations pending plan of care as per clinical response of the patient O follow clinical course closely Time with Patient: Greater than 30
[2017-07-29] MEDS: KETOROLAC 30 MG/ML 1 ML VIAL IVP PRN (13:06)
[2017-07-29] MEDS: LEVOFLOXACIN 500 MG TAB PO SCH (14:48)
--- NOTE | 2017-07-29 20:55 | PN ---
PROGRESS NOTE DATE OF SERVICE: 07/29/2017 REASON FOR FOLLOWUP: Pneumonia, Staph aureus. INTERVAL HISTORY: The patient is afebrile. He is feeling slightly better today. He is breathing comfortably. Cough has decreased in intensity, less productive. Chest pain improved. No nausea. No vomiting. No abdominal pain or diarrhea. PHYSICAL EXAMINATION: Blood pressure 130/89, pulse of 83, temperature 97.9. He is 95% on room air. General description is a middle-aged male up in the bed in no distress. RESPIRATORY SYSTEM: Unlabored breathing with decreased breath sounds at the bases. No wheeze. HEART: S1, S2. Regular rate and rhythm. ABDOMEN: Soft. No tenderness. LABS: Hemoglobin is 12.5, white count 12.9 with a BUN of 7, creatinine 0.85. Sputum showing Staph aureus. Blood culture has been negative. DIAGNOSTIC IMPRESSION AND PLAN: Patient with post influenza, right pneumonia, sputum showing Staphylococcus aureus with a question of possible methicillin-resistant Staphylococcus aeruginosa. Patient is currently covered with vancomycin. That will be continued in addition to Zosyn while waiting for the culture to finalize to narrow down his antibiotics. Continue with supportive care. MMODL / IJN: [id number] /
[2017-07-30] MEDS: KETOROLAC 30 MG/ML 1 ML VIAL IVP PRN ×2 (02:32→09:35)
[2017-07-30] MEDS: SODIUM CHLORIDE 0.9% 1,000 ML IV SCH ×2 (02:32→20:16)
[2017-07-30] MEDS: PIPERACILLIN-TAZOBACTAM 3.375 GM in DEXTROSE/WATER 1 50ML.BAG IVPB SCH ×3 (02:32→17:16)
[2017-07-30] MEDS ORDERED: VANCOMYCIN TROUGH DUE 1 EACH MISC MISCELLANE ONE (07:00)
[2017-07-30 07:58] LABS: Basophils # (A) 0.1 k/uL (0-0.2); Basophils % (A) 1 %; Eosinophils # (A) 0.5 k/uL (0-0.7); Eosinophils % (A) 4 %; HCT 37.3 % (39.0-53.0); HGB 12.2 gm/dL (13.0-17.5); Lymphocytes # (A) 2.2 k/uL (1.0-4.8); Lymphocytes % (A) 19 %; MCH 29.4 pg (25.0-35.0); MCHC 32.6 g/dL (31.0-37.0); MCV 90.2 fL (80.0-100.0); Mean Platelet Volume 7.5; Monocytes % (A) 9 %; Neutrophils # (A) 7.3 k/uL (1.3-7.7); Neutrophils % (A) 66 %; Platelet Count 598 k/uL (150-450); RBC 4.13 m/uL (4.30-5.90); RDW 13.2 % (11.5-15.5); WBC 11.1 k/uL (3.8-10.6)
[2017-07-30] MEDS: VANCOMYCIN 2,000 MG in SODIUM CHLORIDE 0.9% 500 ML IVPB SCH ×3 (08:05→23:16)
[2017-07-30] MEDS: guaiFENesin-DM 100-10MG/5ML 10 ML CUP PO SCH ×2 (08:06→20:14)
[2017-07-30] MEDS: guaiFENesin 600 MG TABLET.ER PO SCH ×2 (08:06→20:14)
[2017-07-30] MEDS: PANTOPRAZOLE 40 MG TABLET PO SCH (08:06)
[2017-07-30] MEDS: ACETAMINOPHEN TAB 325 MG TAB PO PRN ×2 (08:12→17:20)
[2017-07-30 08:27] LABS: Anion Gap 10 mmol/L; Blood Urea Nitrogen 7 mg/dL (9-20); Calcium 8.2 mg/dL (8.4-10.2); Carbon Dioxide 29 mmol/L (22-30); Chloride 103 mmol/L (98-107); Glucose 87 mg/dL (74-99); Potassium 4.3 mmol/L (3.5-5.1); Sodium 142 mmol/L (137-145)
[2017-07-30] MEDS: ALBUTEROL NEBULIZED 2.5 MG/3 ML INHALATION PRN (08:46)
--- NOTE | 2017-07-30 13:33 | P.PN ---
Subjective Progress Note Date: 07/30/17 47-year-old male who presented to his primary care physician, Dr. Gould's office today with a chief complaint of flulike symptoms, coughing, lethargy, and dry heaving. Patient states his symptoms started the Thursday before Day, which was 07/14/2017. Patient reports he took his son to urgent care on 07/19/2017 and his son was diagnosed with Influenza A. He tested negative at that time but was given a Tamiflu prescription. Patient finished Tamiflu regimen last week. The patient denies nausea. He reports dry heaves due to coughing. He states he has a lot of belching after he dry heaves. He states he was having fevers of 102-103 degrees F last week but reports he has been afebrile for the last 48 hours. Patient states he has a frequent cough with occasional sputum production. He states at times he has a hard time bringing up the sputum. He admits to decreased oral intake and states "everything tastes bad right now". Patient states he has been trying to drink water and Gatorade but reports it is probably not enough. Chest x-ray completed in Dr. Gould's office revealed large right middle lobe pneumonia. Influenza testing was completed and patient was positive for influenza A. He received 1 gram Rocephin IM at the office and blood cultures were obtained. The patient has a history of ITP and underwent splenectomy in 2006. His states he follows up with Dr. Luna and requires platelet transfusions approximately every 3-4 years. reports last transfusion was approximately three years ago. He was directly admitted to [facility]. Consultations were placed to Dr. Merino, pulmonary and Dr. Maria, infectious disease. 07/28/2017 Patient seen and examined at the bedside on rounds with Dr. Gould. Patient is awake and alert. Sitting up at the bedside. Patient states he had a "rough night " and was unable to sleep very much due to coughing. He is requesting something to help him sleep tonight. Patient is afebrile this morning. Blood pressure 124/ 68. Oxygen saturation greater than 92% on room air. Incentive spirometer is at the bedside and patient is using 10 times an hour. Pulling at least 2000cc. Blood cultures and sputum cultures are pending. He remains on Levaquin and Rocephin. 07/29/2017 Patient seen and examined at the the bedside on rounds with Dr. Gould. Patient is awake and alert. Sitting up in bed. Patient states he had a better night last night and was able to get some sleep. He complains of a dry mouth. He continues to have a frequent cough. CT of the chest was performed yesterday without contrast revealing right upper lobe pneumonia, parapneumonic effusion, difficult to exclude an underlying mass. Possible granulomatosis disease. Dr. Merino, pulmonary, remains on consult. The patient was seen and evaluated by infectious disease, Dr. Maria. He was started on Zosyn and vancomycin. WBC this morning is 12.9. Patient continues to have low-grade fevers. Temperature this morning is 99.7F. Mildly tachycardic with a heart rate of 102. Blood pressure is stable at 137/82. He is on room air with an oxygen saturation of 92 %. Blood cultures are negative at the 24 hour fran. Sputum culture is in progress. 07/30/2017 Patient seen and examined at the bedside. Patient states his coughing has decreased in severity. He denies shortness of breath. Blood cultures are negative at the 24 hour fran. Sputum culture is positive for presumptive staph aureus. Infectious disease remains on consult. He is afebrile. Blood pressure is stable. WBC is down to 11.1 today. Hemoglobin stable at 12.2. Tolerating PO intake without nausea or vomiting. He reports improvement in chest discomfort secondary to coughing. Objective - Vital Signs Vital signs: Vital Signs Temp 97.5 F L 07/30/17 07:00 Pulse 91 07/30/17 08:55 Resp 16 07/30/17 08:55 BP 128/76 07/30/17 07:00 Pulse Ox 92 L 07/30/17 07:00 Intake & Output 07/29/17 07/30/17 07/30/17 18:59 06:59 18:59 Intake Total 850 1800 550 Balance 850 1800 550 Intake: Intake, IV Titration 850 550 Amount Piperacillin-Tazobactam 3 100 50 .375 gm In Dextrose/Water 1 50ml.bag @ 12.5 mls/hr IVPB Q8H [facility] Rx#: [id number] Sodium Chloride 0.9% 1, 250 000 ml @ 50 mls/hr IV . Q20H [facility] Rx#:[id number] Vancomycin 2,000 mg In 500 Sodium Chloride 0.9% 500 ml @ 167 mls/hr IVPB Q8HR [facility] Rx#:[id number] Vancomycin 2,500 mg In 500 Sodium Chloride 0.9% 500 ml @ 167 mls/hr IVPB ONCE ONE Rx#:[id number] Oral 1800 Other: Voiding Method Toilet # Voids 6 - Exam GENERAL: This is a 47-year-old in no apparent distress at the time of examination, but appears to be feeling unwell. Pleasant and cooperative. HEENT: Head is atraumatic, normocephalic. Pupils are equal, round, and reactive to light. Sclerae anicteric. Conjunctivae are clear. Mucus membranes of the mouth are moist. Neck is supple. RESPIRATORY: Diminished breath sounds on the right middle and upper lobe monahan. No wheezing noted. No use of accessory muscles. Patient maintaining oxygen saturation greater than 92% on room air. No chest wall tenderness is noted on palpation or with deep breathing. CARDIOVASCULAR: Regular rate and rhythm. S1 and S2 noted. No systolic or diastolic murmur auscultated. No JVD noted. No S3 or S4 noted. GASTROINTESTINAL: No distention noted. Abdomen soft and round. Normal active bowel sounds auscultated x 4 quadrants. No pain or tenderness noted upon palpation. INTEGUMENTARY: No cyanosis. No jaundice. No rashes noted. No cellulitis noted. EXTREMITIES: 2+ peripheral pulses. No evidence of peripheral edema. No calf tenderness noted. NEUROLOGIC: Cranial nerves II-XII intact. PSYCHIATRIC: Awake, alert, and oriented X 3. Appropriate affect. Intact judgement and insight. - Labs CBC & Chem 7: 07/30/17 06:59 07/30/17 06:59 Labs: Abnormal Lab Results - Last 24 Hours (Table) 07/30/17 07/30/17 Range/Units 06:59 06:59 WBC 11.1 H (3.8-10.6) k/uL RBC 4.13 L (4.30-5.90) m/uL Hgb 12.2 L (13.0-17.5) gm/dL Hct 37.3 L (39.0-53.0) % Plt Count 598 H (150-450) k/uL BUN 7 L (9-20) mg/dL Calcium 8.2 L (8.4-10.2) mg/dL Microbiology - Last 24 Hours (Table) 07/28/17 04:51 Gram Stain - Preliminary Sputum Sputum Culture - Preliminary Presumptive Staph aureus 07/27/17 15:19 Blood Culture - Preliminary Blood No Growth after 48 hours 07/27/17 13:35 Blood Culture - Preliminary Blood No Growth after 48 hours Assessment and Plan Plan: ASSESSMENT: Right middle lobe/upper lobe pneumonia, post influenza, present on admission, preliminary sputum culture positive for staph aureus Positive influenza A, completed Tamiflu course outpatient Sepsis, secondary to pneumonia and influenza A History of ITP with splenectomy in 2006, follows up with Dr. Luna Obesity: BMI 34.5 PLAN: Pulmonary on consult. Appreciate recommendations and input Infectious disease, Dr. Maria, on consult. Appreciate recommendations and input Antibiotic regimen per Dr. Maria: Currently on Zosyn and Vanco Await final sputum cultures Patient completed Tamiflu as prescribed by urgent care Droplet precautions Mucinex to help loosen secretions Continue IV fluids at 50cc/hr Ambien 5mg HS PRN for insomnia Toradol PRN for pain/discomfort IS 10 times an hour while awake Home meds as appropriate-patient denies any home medications Monitor labs GI prophylaxis: Protonix 40 mg PO Daily DVT prophylaxis: Encourage ambulation. SCDs to bilateral lower extremities while in bed Monitor vital signs and address as appropriate Discharge planning: Patient to return home when stable Further recommendations pending patient's course Nurse practitioner note has been reviewed by physician. Signing provider agrees with the documented findings, assessment, and plan of care.
--- NOTE | 2017-07-30 16:29 | P.PN ---
Subjective Progress Note Date: 07/30/17 Principal diagnosis: Bilateral multi lobar pneumonia with sepsis, left-sided pleuritic chest wall pain, asplenia, history of ITP, morbid obesity 07/30/2017, patient seen and evaluated examined care plan discussed with the patient at length cuff congestion shortness of breath is improved breathing more comfortably no obvious distress present culture results and report as well as laboratory data reviewed Aury Duarte gram-positive cocci are seen in the sputum, blood cultures remain negative , patient remains on vancomycin and Zosyn tolerating very well 07/29/2017, patient seen eval examined during the rounds clinically patient is slightly better the flank pain that was noted yesterday has improved significantly patient cough congestion is still present but severity is slightly better able to get some sleep last night, patient remains on broad- spectrum antibiotics along with breathing treatments the computed tomography scan of the chest reviewed there is a dense consolidation in the right mid lung field is seen along with infiltrate in the left lower lobe as well as right lower lobe very small pleural effusion is seen not enough to tap likely related to reactive related to pneumonia, labs reviewed medications reviewed, leukocytosis slightly better 07/28/2017, patient seen eval examined during the rounds clinically still have issues a serious significant shortness of breath and pleuritic chest pain patient has a significant degree or dry nonproductive cough sometimes is associated with thick tenacious sputum production, patient has been complaining of new right lower flank pain with some pleuritic component and point tenderness. He denies any hemoptysis he remains significantly restless related to breathing issues coughing and chest tightness and pain have discussed with the staff at length will start patient on Toradol, Tessalon Perles as well as Tussionex cough syrup we'll continue broad-spectrum antibiotics, 47-year-old male who was seen eval examined on fifth floor this patient has a significant history of splenectomy and ITP patient has not been feeling well for almost 2 weeks of increased cough congestion shortness of breath patient has a significant exposure influenza A however initially was negative but did receive a course of Tamiflu, patient continued to do not very well with 3 days prior to coming hospital had a spiking fever up to 102 with those problems was seen evaluated examined at primary care office where a chest x-ray were performed revealed large right midlung field consolidation patient has been admitted to hospital for further evaluation and intervention and treatment, patient did receive a dose of Rocephin in primary care's office, further workup and office revealed influenza A to be positive Patient denies any seizure-like activity loss of consciousness hemiparesis does have significant cough however denies any hemoptysis denies any chest pain or radiation of pain does have some abdominal discomfort and thoracic wall discomfort due to excessive coughing and heaving, denies any bowel or bladder dysfunction, due to ITP had a platelet transfusion over 3 years ago Objective - Vital Signs Vital signs: Vital Signs Temp 97.1 F L 07/30/17 15:00 Pulse 73 07/30/17 15:00 Resp 16 07/30/17 15:00 BP 147/92 07/30/17 15:00 Pulse Ox 95 07/30/17 15:00 Intake & Output 07/29/17 07/30/17 07/30/17 18:59 06:59 18:59 Intake Total 850 1800 1050 Balance 850 1800 1050 Intake: Intake, IV Titration 850 1050 Amount Piperacillin-Tazobactam 3 100 50 .375 gm In Dextrose/Water 1 50ml.bag @ 12.5 mls/hr IVPB Q8H [facility] Rx#: [id number] Sodium Chloride 0.9% 1, 250 000 ml @ 50 mls/hr IV . Q20H [facility] Rx#:[id number] Vancomycin 2,000 mg In 1000 Sodium Chloride 0.9% 500 ml @ 167 mls/hr IVPB Q8HR [facility] Rx#:[id number] Vancomycin 2,500 mg In 500 Sodium Chloride 0.9% 500 ml @ 167 mls/hr IVPB ONCE ONE Rx#:[id number] Oral 1800 Other: Voiding Method Toilet # Voids 6 3 - Exam - Constitutional General appearance: cooperative, disheveled, mild distress, obese - EENT Eyes: anicteric sclerae, EOMI, PERRLA, normal appearance ENT: normal oropharynx Ears: bilateral: normal - Neck Neck: normal ROM Carotids: bilateral: upstroke normal, bruit absent Thyroid: bilateral: normal size - Respiratory Respiratory: Bilateral: rales, rhonchi slightly more improved on today's exam compared to yesterday - Cardiovascular Heart sounds: normal: S1, S2 - Gastrointestinal General gastrointestinal: normal bowel sounds, soft - Integumentary Integumentary: normal, normal turgor - Neurologic Neurologic: CNII-XII intact - Musculoskeletal Musculoskeletal: gait normal, generalized weakness, strength equal bilaterally - Psychiatric Psychiatric: A&O x's 3, appropriate affect, intact judgment & insight - Labs CBC & Chem 7: 07/30/17 06:59 07/30/17 06:59 Labs: Abnormal Lab Results - Last 24 Hours (Table) 07/30/17 07/30/17 Range/Units 06:59 06:59 WBC 11.1 H (3.8-10.6) k/uL RBC 4.13 L (4.30-5.90) m/uL Hgb 12.2 L (13.0-17.5) gm/dL Hct 37.3 L (39.0-53.0) % Plt Count 598 H (150-450) k/uL BUN 7 L (9-20) mg/dL Calcium 8.2 L (8.4-10.2) mg/dL Microbiology - Last 24 Hours (Table) 07/28/17 04:51 Gram Stain - Preliminary Sputum Sputum Culture - Preliminary Presumptive Staph aureus 07/27/17 15:19 Blood Culture - Preliminary Blood No Growth after 48 hours 07/27/17 13:35 Blood Culture - Preliminary Blood No Growth after 48 hours Assessment and Plan Assessment: Sepsis associated with right mid lung field pneumonia and multi lobar pneumonia as noted on computed tomography scan Staphylococcus aureus pneumonia however associated bacterial infection cannot be excluded Small Right-sided parapneumonic effusion Right midlung field mass likely pneumonia however occult neoplasm cannot be excluded Complicated pneumonia with a right pleural effusion Influenza A pneumonia ITP History of splenectomy Plan: Gentle rehydration Antibiotics switched to when propofol is Zosyn Reviewed computed tomography scan of his chest to look into details of pneumonia as well as to look into developing pleural effusion, patient will need a follow-up radiographic studies to document resolution and short-term basis, discussed with patient as well as patient and at length Bronchodilators as needed Further recommendations pending plan of care as per clinical response of the patient O follow clinical course closely Time with Patient: Greater than 30
--- NOTE | 2017-07-30 21:05 | PN ---
PROGRESS NOTE DATE OF SERVICE: 07/30/2017. REASON FOR FOLLOWUP: Pneumonia. INTERVAL HISTORY: The patient is afebrile. He is feeling much better, breathing comfortably. The cough has decreased in intensity. No chest pain. No abdominal pain or any diarrhea. EXAMINATION: Blood pressure 147/92 with a pulse of 73, temperature 97.1. He is 95% on room air. General description is a middle aged male up in the bed in no distress. RESPIRATORY SYSTEM: Unlabored breathing. Clear to auscultation anteriorly. HEART: S1, S2. Regular rate and rhythm. ABDOMEN: Soft, no tenderness. LABS: Hemoglobin is 12.2, white count of 11.1 with a BUN of with a creatinine of 0.89. The sputum is showing Staph aureus with sensitivities still pending. DIAGNOSTIC IMPRESSION AND PLAN: Patient with right upper lobe pneumonia. Sputum has been Staph aureus, currently covered with vancomycin that will be continued with discharge antibiotic depending upon the findings of sensitivity of this pathogen. Continue supportive care. MMODL / IJN: [id number] /
[2017-07-31] MEDS: PIPERACILLIN-TAZOBACTAM 3.375 GM in DEXTROSE/WATER 1 50ML.BAG IVPB SCH ×2 (02:12→11:30)
--- NOTE | 2017-07-31 06:52 | P.PN ---
Subjective Progress Note Date: 07/31/17 Principal diagnosis: Bilateral multi lobar pneumonia with sepsis related to staph Aureus, influenza A pneumonia, left-sided pleuritic chest wall pain, asplenia, history of ITP, morbid obesity 07/31/2017, patient seen eval reexamined during the rounds clinically has been doing well awake and alert breathing comfortably able to get some sleep severity or chest pain and cough is significantly significantly improved, sputum culture continued to grow gram-positive cocci presumptive Staphylococcus aureus final ID however is pending patient is being treated with broad-spectrum antibiotics with vancomycin and Zosyn 07/30/2017, patient seen and evaluated examined care plan discussed with the patient at length cuff congestion shortness of breath is improved breathing more comfortably no obvious distress present culture results and report as well as laboratory data reviewed gram-positive cocci are seen in the sputum, blood cultures remain negative , patient remains on vancomycin and Zosyn tolerating very well 07/29/2017, patient seen eval examined during the rounds clinically patient is slightly better the flank pain that was noted yesterday has improved significantly patient cough congestion is still present but severity is slightly better able to get some sleep last night, patient remains on broad- spectrum antibiotics along with breathing treatments the computed tomography scan of the chest reviewed there is a dense consolidation in the right mid lung field is seen along with infiltrate in the left lower lobe as well as right lower lobe very small pleural effusion is seen not enough to tap likely related to reactive related to pneumonia, labs reviewed medications reviewed, leukocytosis slightly better 07/28/2017, patient seen eval examined during the rounds clinically still have issues a serious significant shortness of breath and pleuritic chest pain patient has a significant degree or dry nonproductive cough sometimes is associated with thick tenacious sputum production, patient has been complaining of new right lower flank pain with some pleuritic component and point tenderness. He denies any hemoptysis he remains significantly restless related to breathing issues coughing and chest tightness and pain have discussed with the staff at length will start patient on Toradol, Tessalon Perles as well as Tussionex cough syrup we'll continue broad-spectrum antibiotics, 47-year-old male who was seen eval examined on fifth floor this patient has a significant history of splenectomy and ITP patient has not been feeling well for almost 2 weeks of increased cough congestion shortness of breath patient has a significant exposure influenza A however initially was negative but did receive a course of Tamiflu, patient continued to do not very well with 3 days prior to coming hospital had a spiking fever up to 102 with those problems was seen evaluated examined at primary care office where a chest x-ray were performed revealed large right midlung field consolidation patient has been admitted to hospital for further evaluation and intervention and treatment, patient did receive a dose of Rocephin in primary care's office, further workup and office revealed influenza A to be positive Patient denies any seizure-like activity loss of consciousness hemiparesis does have significant cough however denies any hemoptysis denies any chest pain or radiation of pain does have some abdominal discomfort and thoracic wall discomfort due to excessive coughing and heaving, denies any bowel or bladder dysfunction, due to ITP had a platelet transfusion over 3 years ago Objective - Vital Signs Vital signs: Vital Signs Temp 97.2 F L 07/31/17 05:58 Pulse 91 07/31/17 05:58 Resp 20 07/31/17 05:58 BP 135/81 07/31/17 05:58 Pulse Ox 92 L 07/31/17 05:58 Intake & Output 07/30/17 07/30/17 07/31/17 06:59 18:59 06:59 Intake Total 1800 1050 700 Balance 1800 1050 700 Intake: Intake, IV Titration 1050 Amount Piperacillin-Tazobactam 3 50 .375 gm In Dextrose/Water 1 50ml.bag @ 12.5 mls/hr IVPB Q8H [facility] Rx#: [id number] Vancomycin 2,000 mg In 1000 Sodium Chloride 0.9% 500 ml @ 167 mls/hr IVPB Q8HR [facility] Rx#:[id number] Oral 1800 700 Other: Voiding Method Toilet # Voids 6 3 2 - Exam - Constitutional General appearance: cooperative, disheveled, mild distress, obese - EENT Eyes: anicteric sclerae, EOMI, PERRLA, normal appearance ENT: normal oropharynx Ears: bilateral: normal - Neck Neck: normal ROM Carotids: bilateral: upstroke normal, bruit absent Thyroid: bilateral: normal size - Respiratory Respiratory: Bilateral: rales, rhonchi slightly more improved on today's exam compared to yesterday - Cardiovascular Heart sounds: normal: S1, S2 - Gastrointestinal General gastrointestinal: normal bowel sounds, soft - Integumentary Integumentary: normal, normal turgor - Neurologic Neurologic: CNII-XII intact - Musculoskeletal Musculoskeletal: gait normal, generalized weakness, strength equal bilaterally - Psychiatric Psychiatric: A&O x's 3, appropriate affect, intact judgment & insight - Labs CBC & Chem 7: 07/30/17 06:59 07/30/17 06:59 Labs: Abnormal Lab Results - Last 24 Hours (Table) 07/30/17 07/30/17 Range/Units 06:59 06:59 WBC 11.1 H (3.8-10.6) k/uL RBC 4.13 L (4.30-5.90) m/uL Hgb 12.2 L (13.0-17.5) gm/dL Hct 37.3 L (39.0-53.0) % Plt Count 598 H (150-450) k/uL BUN 7 L (9-20) mg/dL Calcium 8.2 L (8.4-10.2) mg/dL Microbiology - Last 24 Hours (Table) 07/27/17 15:19 Blood Culture - Preliminary Blood No Growth after 72 hours 07/27/17 13:35 Blood Culture - Preliminary Blood No Growth after 72 hours 07/28/17 04:51 Gram Stain - Preliminary Sputum Sputum Culture - Preliminary Presumptive Staph aureus Assessment and Plan Assessment: Sepsis associated with right mid lung field pneumonia and multi lobar pneumonia related to Staphylococcus aureus as noted on computed tomography scan Staphylococcus aureus pneumonia however associated bacterial infection cannot be excluded Small Right-sided parapneumonic effusion Right midlung field mass likely pneumonia however occult neoplasm cannot be excluded, patient will require a follow-up CT in 8-12 weeks Complicated pneumonia with a right pleural effusion Influenza A pneumonia ITP History of splenectomy Plan: Gentle rehydration Antibiotics vancomycin and Zosyn, final selection is pending on final ID of the organism as well as duration as per ID services Reviewed computed tomography scan of his chest to look into details of pneumonia as well as to look into developing pleural effusion, Bronchodilators as needed Further recommendations pending plan of care as per clinical response of the patient O follow clinical course closely Time with Patient: Greater than 30
[2017-07-31 07:49] LABS: Anion Gap 11 mmol/L; Blood Urea Nitrogen 9 mg/dL (9-20); Calcium 8.6 mg/dL (8.4-10.2); Carbon Dioxide 28 mmol/L (22-30); Chloride 104 mmol/L (98-107); Glucose 92 mg/dL (74-99); Potassium 4.4 mmol/L (3.5-5.1); Sodium 143 mmol/L (137-145)
--- NOTE | 2017-07-31 07:51 | PN ---
PROGRESS NOTE Patient is actually feeling better today, but still coughing, mildly lethargic and occasionally dry heaves from nausea. The patient has a long-standing history of having been sick since the Thursday before Mother's Day, which was 07/14/2017. At that time, had a son who was also sick, took him to the Urgent Care on 07/19/2017 and he was diagnosed with influenza A. He tested negative at that time, but was given Tamiflu anyway. Patient finished the Tamiflu regiment . He developed a cough, 101.2 to 103 temp, very productive, was seen in my office and had a large what appeared to be right middle lobe pneumonia. On CAT scan, it shows that it is an upper lobe. He also had a positive influenza A. In my office, he was given 1 gram of Rocephin IM at the office and blood cultures were obtained before that period of time. 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 This patient has been seen at that time and I had seen him in the hospital on both the , and and at the . As the , he was still coughing a fair amount with a fair amount of shortness of breath, but he remained afebrile and his white count was down to 11.2 today. He still continued to be on Zosyn and vancomycin. REVIEW OF SYSTEMS: At this period of time, review of systems: EYES: He sees well. ENT: He has very dry mouth, but he is observed to be sleeping with mouth open. NECK: Supple. CHEST: Respiratory cough of fair amount, continuously. HEART: No palpitations. No orthopnea and no paroxysmal nocturnal dyspnea. ABDOMEN: Soft. Per patient, he said he has not had any nausea this morning but did last night. No diarrhea. No constipation. No hematemesis, melena, or hematochezia. : He has been urinating continuously. NEUROLOGICALLY: He has been stable. PSYCHIATRIC: No depression. No anxiety. INTEGUMENTARY: No problem with his skin. No rashes. ENDOCRINE: Has been negative. Hematologically though he has ITP. PHYSICAL EXAMINATION: At this period of time, he has got a blood pressure of 138/80, heart rate is in the 90s, temperature is 97.2, respiration is 20, and O2 saturation is 92. EYES: Pupils are equal, round, react to light and accommodation. ENT showed tympanic membranes and pharynx to be negative. Neck is supple with midline trachea. CHEST: Essentially clear except for rhonchi in the right lower lobe. He does have a fair amount rhonchi in the left lower lobe. Also, he has got decreased breath sounds in the right upper and right middle to auscultation. Heart is sinus rhythm with no murmur. ABDOMEN: Soft, nontender with no organomegaly GENITOURINARY: No abnormalities via the genitalia EXTREMITIES: He has good palpable pulses throughout lower extremities. No arthritis seen in the knees and ankles. He does have some arthritis seen in his hands in DIP and PIP. PSYCHIATRIC: He does not appear to be depressed or anxious. He has a rather decrease in affect, which is his normal. LABORATORY: There is no lab for this morning. Please refer to my orders. MEDICATIONS: He is still on aspirin p.r.n. for temperature. He is taking albuterol updrafts 4 times a day, Tessalon Perles up to 3 times a day, Mucinex twice a day, Toradol, he received one injection of Toradol 50 mg for pain. He has had Protonix 40 mg daily. He is on Zosyn q.8 hours. He is on vancomycin 2 grams daily and Ambien 4 mg daily. Staph aureus was seen in his sputum. Negative blood culture in the office that was completed before he came and then blood culture x2 after he has been here after having already received medication IV, have continued to be normal. ASSESSMENT: 1. Pneumonia right upper lobe presumptuous Staphylococcus aureus. 2. Influenza A. 3. Probable sepsis. 4. Idiopathic thrombocytopenia purpura with a splenectomy 2006. PLAN: We will follow him accordingly. Please refer to my orders. Continue IV antibiotics. MMODL / IJN: [id number] /
[2017-07-31 07:54] LABS: Basophils # (A) 0.1 k/uL (0-0.2); Basophils % (A) 0 %; Eosinophils # (A) 0.5 k/uL (0-0.7); Eosinophils % (A) 4 %; HCT 39.5 % (39.0-53.0); Lymphocytes # (A) 1.8 k/uL (1.0-4.8); Lymphocytes % (A) 16 %; MCH 29.7 pg (25.0-35.0); MCHC 32.9 g/dL (31.0-37.0); MCV 90.1 fL (80.0-100.0); Mean Platelet Volume 7.2; Monocytes # (A) 0.8 k/uL (0-1.0); Monocytes % (A) 7 %; Neutrophils # (A) 7.9 k/uL (1.3-7.7); Neutrophils % (A) 71 %; Platelet Count 615 k/uL (150-450); RBC 4.38 m/uL (4.30-5.90); RDW 13.2 % (11.5-15.5); WBC 11.1 k/uL (3.8-10.6)
[2017-07-31] MEDS: PANTOPRAZOLE 40 MG TABLET PO SCH (07:58)
[2017-07-31] MEDS: VANCOMYCIN 2,000 MG in SODIUM CHLORIDE 0.9% 500 ML IVPB SCH (07:58)
[2017-07-31] MEDS: guaiFENesin 600 MG TABLET.ER PO SCH (07:58)
[2017-07-31] MEDS: guaiFENesin-DM 100-10MG/5ML 10 ML CUP PO SCH (07:59)
[2017-07-31] MEDS: KETOROLAC 30 MG/ML 1 ML VIAL IVP PRN (11:18)
--- NOTE | 2017-07-31 14:24 | PN ---
PROGRESS NOTE DATE OF SERVICE: 07/31/2017 REASON FOR FOLLOWUP: MRSA pneumonia. INTERVAL HISTORY: The patient is afebrile. He is currently breathing comfortably. Cough decreased in intensity, feeling almost 80% better. No chest pain. No abdominal pain or any diarrhea. PHYSICAL EXAMINATION: Blood pressure 135/81 with a pulse of 91, temperature 97.2, he is 92% on room air. General description is a middle-aged male, up in the room in no distress. RESPIRATORY SYSTEM: Unlabored breathing, clear to auscultation. HEART: S1, S2. Regular rate and rhythm. ABDOMEN: Soft, no tenderness. LABS: White count of 11.1 and BUN of 9, creatinine 1.01. Vanco level at 15.6. Sputum showing MRSA, blood culture had been negative. DIAGNOSTIC IMPRESSION AND PLAN: Patient with methicillin-resistant Staphylococcus aureus pneumonia, post influenza. We will try to arrange for Zyvox 100 mg twice a day for 10 days. If that prescription is not being covered by insurance with getting a midline for outpatient IV vancomycin for the same duration with target of 15. Script has been left with the patient nurse and the case was discussed with the patient and senior case manager. MMODL / IJN: [id number] /
[2017-07-31 14:57] VITALS: BP 135/78; PULSE 82; RESP 14; TEMP 97.9
[2017-07-31] MEDS ORDERED: VANCOMYCIN 2,000 MG in SODIUM CHLORIDE 0.9% 500 ML IVPB SCH (19:00)
[2017-08-01] MEDS ORDERED: VANCOMYCIN TROUGH DUE 1 EACH MISC MISCELLANE ONE (10:00)
== END 2017-07-31 16:09 | disposition home or self-care (01) | DRG 871 ==
LOC: 5MS5E 12:59 → 4MS4W 07-29 14:55
PROVIDERS: ADMIT Family Medicine; ATTEND Family Medicine
DX: A41.01 Sepsis due to Methicillin susceptible Staphylococcus aureus (principal); J10.08 Influenza due to other identified influenza virus with other specified pneumonia; J15.212 Pneumonia due to Methicillin resistant Staphylococcus aureus; D69.3 Immune thrombocytopenic purpura; J90 Pleural effusion, not elsewhere classified; E66.9 Obesity, unspecified; J10.1 Influenza due to other identified influenza virus with other respiratory manifestations; Z68.34 Body mass index [BMI] 34.0-34.9, adult; Z80.42 Family history of malignant neoplasm of prostate; Z90.81 Acquired absence of spleen; Z88.2 Allergy status to sulfonamides; Z82.49 Family history of ischemic heart disease and other diseases of the circulatory system
CPT/HCPCS: 71046; 71250; 80048; 80053; 80202; 83605; 85025; 87040; 87070; 87077; 87186; 87205; 94640; 94760

== ENCOUNTER 2017-09-27 08:23 | Inpatient (IN) | payer BC ==
[2017-09-27] MEDS ORDERED: IBUPROFEN 800 MG TAB PO STA (08:37)
[2017-09-27] MEDS ORDERED: ACETAMINOPHEN TAB 500 MG TAB PO STA (08:37)
[2017-09-27] MEDS ORDERED: SODIUM CHLORIDE 0.9% 1,000 ML IV STA (08:37)
--- NOTE | 2017-09-27 08:42 | ED ---
General Adult HPI - General Chief complaint: Extremity Injury, Lower Stated complaint: Hip/Leg Pain Time Seen by Provider: 09/27/17 08:30 Source: patient Mode of arrival: ambulatory Limitations: no limitations - History of Present Illness Initial comments: Dictation was produced using [employer] dictation software. please excuse any grammatical, word or spelling errors. Chief Complaint: 27 year male past medical history of ITP, status post splenectomy 2006 presents with right-sided glue pain with radiation to the right lower extremity. History of Present Illness: Patient is a 47-year-old male with past medical history of ITP status post splenectomy presents with right lower extremity pain. Patient states his pain originates from the right glue and radiates down the leg to the toes. Patient states he injured his glue 3 weeks ago when he was moving furniture. Patient denies any specific inciting event however does recall noticing pain while he was moving furniture. Patient did see his primary care physician and was scheduled to have MRI. He states that this pain has been persistent and mildly worse from him to come to the emergency department today. Patient denies any constitutional symptoms. Denies any urinary incontinence, urinary retention, saddle anesthesia or bowel incontinence. The ROS documented in this emergency department record has been reviewed and confirmed by me. Those systems with pertinent positive or negative responses have been documented in the HPI. All other systems are other negative and/or noncontributory. - Related Data Previous Rx's Medication Instructions Recorded Linezolid [Zyvox] 600 mg PO Q12H #20 tab 07/31/17 Allergies Allergy/AdvReac Type Severity Reaction Status Date / Time sulfamethoxazole Allergy Rash/Hives Verified 09/27/17 08:29 [From Bactrim] trimethoprim [From Bactrim] Allergy Rash/Hives Verified 09/27/17 08:29 Review of Systems ROS Statement: Those systems with pertinent positive or pertinent negative responses have been documented in the HPI. ROS Other: All systems not noted in ROS Statement are negative. Past Medical History Additional Past Medical History / Comment(s): ITP History of Any Multi-Drug Resistant Organisms: None Reported Date of last positivie culture/infection: 07/28/17 MDRO Source:: SPUTUM Additional Past Surgical History / Comment(s): splenectomy 2006, tonsils removed , Past Anesthesia/Blood Transfusion Reactions: No Reported Reaction Past Psychological History: No Psychological Hx Reported Smoking Status: Never smoker Past Alcohol Use History: None Reported Past Drug Use History: None Reported - Past Family History Father Family Medical History: AFIB, AICD/Pacemaker, Cancer Additional Family Medical History / Comment(s): Prostate CA, skin CA General Exam - General Exam Comments Initial Comments: PHYSICAL EXAM: General Impression: Alert and oriented x3, acute distress secondary to pain HEENT: Normocephalic atraumatic, extra-ocular movements intact, pupils equal and reactive to light bilaterally, mucous membranes moist. Cardiovascular: Heart regular rate and rhythm, S1&S2 audible, no murmurs, rubs or gallops Chest: Lungs clear to auscultation bilaterally, no rhonchi, no wheeze, no rales Abdomen: Bowel sounds present, abdomen soft, non-tender, non-distended, no organomegaly Musculoskeletal: Pulses present and equal in all extremities, no peripheral edema, tenderness to palpation over the right piriformis Motor: Power 5/5 bilaterally, no focal deficits noted Neurological: CN II-XII grossly intact, no focal motor or sensory deficits noted Skin: Intact with no visualized rashes Psych: Normal affect and mood Limitations: no limitations Course Vital Signs 09/27/17 08:26 Temperature 97.8 F Pulse Rate 118 H Respiratory 18 Rate Blood Pressure 128/69 O2 Sat by Pulse 98 Oximetry Procedures - Incision & Drainage Consent Obtained: verbal consent Time Out Performed?: Yes Site: other Size (cm): 5 Anesthetic Used: lidocaine 1%, lidocaine 2%, with epi Amount (mLs): 8 I&D Cleaning Method: Chloroprep Sterile Field Used?: No Scalpel Used: #11 Needle Aspiration Performed?: Yes Irrigation Performed?: Yes I&D Drainage Obtained: Pus Packing: Iodoform Culture Obtained?: Yes Patient Tolerated Procedure: well Medical Decision Making - Medical Decision Making ED course: 47-year-old male with clinical presentation consistent with sciatica. Signs upon arrival shows tachycardia 118, rest of vital signs within normal limits. Patient had been evaluated treated by primary care physician. Patient was discharged with analgesic medications however he reports that he is not has been helping. Laboratory evaluation obtained. Leukocytosis of 23.6. Patient's baseline is usually around 12 or 11. Metabolic panel is unremarkable. Mild hyperglycemia 171. More history was obtained from patient. Patient states she's been having a inflammation to his right gluteal region that spent ongoing for the last 3 days. Evaluation of the area showed exquisite cellulitis. [id number] bedside ultrasound showed large fluid collection. Bedside I&D was performed with expression of large amounts of purulent fluid. Patient mildly septic. Given intravenous fluids, 2 g of vancomycin. Patient be admitted for IV antibiotics. Patient understandable agreeable to plan. No clinical suspicion of necrotizing infection at this time. - Lab Data Result diagrams: 09/27/17 09:03 09/27/17 09:03 Lab Results 09/27/17 09/27/17 Range/Units 09:03 09:03 WBC 23.6 H (3.8-10.6) k/uL RBC 4.96 (4.30-5.90) m/uL Hgb 14.4 (13.0-17.5) gm/dL Hct 44.9 (39.0-53.0) % MCV 90.4 (80.0-100.0) fL MCH 28.9 (25.0-35.0) pg MCHC 32.0 (31.0-37.0) g/dL RDW 14.4 (11.5-15.5) % Plt Count 327 (150-450) k/uL Neutrophils % 82 % Lymphocytes % 8 % Monocytes % 7 % Eosinophils % 2 % Basophils % 0 % Neutrophils # 19.4 H (1.3-7.7) k/uL Lymphocytes # 1.9 (1.0-4.8) k/uL Monocytes # 1.6 H (0-1.0) k/uL Eosinophils # 0.4 (0-0.7) k/uL Basophils # 0.1 (0-0.2) k/uL Sodium 136 L (137-145) mmol/L Potassium 4.5 (3.5-5.1) mmol/L Chloride 100 (98-107) mmol/L Carbon Dioxide 28 (22-30) mmol/L Anion Gap 8 mmol/L BUN 12 (9-20) mg/dL Creatinine 1.00 (0.66-1.25) mg/dL Est GFR (CKD-EPI)AfAm >90 (>60 ml/min/1.73 sqM) Est GFR (CKD-EPI)NonAf 90 (>60 ml/min/1.73 sqM) Glucose 171 H (74-99) mg/dL Calcium 8.9 (8.4-10.2) mg/dL Magnesium 2.3 (1.6-2.3) mg/dL Disposition Clinical Impression: Abscess, Sepsis affecting skin Disposition: ADMITTED IP TO THIS HOSP Condition: Fair Referrals: Sebas Gould MD [Primary Care Provider] - 1-2 days Time of Disposition: 10:22
[2017-09-27 09:13] LABS: Basophils # (A) 0.1 k/uL (0-0.2); Basophils % (A) 0 %; Eosinophils # (A) 0.4 k/uL (0-0.7); Eosinophils % (A) 2 %; HCT 44.9 % (39.0-53.0); HGB 14.4 gm/dL (13.0-17.5); Lymphocytes # (A) 1.9 k/uL (1.0-4.8); Lymphocytes % (A) 8 %; MCH 28.9 pg (25.0-35.0); MCV 90.4 fL (80.0-100.0); Mean Platelet Volume 7.2; Monocytes # (A) 1.6 k/uL (0-1.0); Monocytes % (A) 7 %; Neutrophils # (A) 19.4 k/uL (1.3-7.7); Neutrophils % (A) 82 %; Platelet Count 327 k/uL (150-450); RBC 4.96 m/uL (4.30-5.90); RDW 14.4 % (11.5-15.5); WBC 23.6 k/uL (3.8-10.6)
[2017-09-27 09:24] LABS: Anion Gap 8 mmol/L; Calcium 8.9 mg/dL (8.4-10.2); Carbon Dioxide 28 mmol/L (22-30); Chloride 100 mmol/L (98-107); Glucose 171 mg/dL (74-99); Sodium 136 mmol/L (137-145)
[2017-09-27 09:38] LABS: Blood Urea Nitrogen 12 mg/dL (9-20); Magnesium 2.3 mg/dL (1.6-2.3); Potassium 4.5 mmol/L (3.5-5.1)
[2017-09-27] MEDS ORDERED: VANCOMYCIN 2,000 MG in SODIUM CHLORIDE 0.9% 500 ML IVPB STA (09:52)
--- NOTE | 2017-09-27 09:57 | XR ---
EXAMINATION TYPE: XR Hip RT and AP Pelvis , 4 VIEWS DATE OF EXAM ORDERED: 09/27/2017 HISTORY: Pain. COMPARISON: None. FINDINGS: Osseous structures about the pelvis are normal. No fracture is seen. There are degenerativ e changes in the L5-S1 disc level. The left hip is unremarkable. There are phleboliths within the pelvis. IMPRESSION: 1. NO ACUTE OSSEOUS LESION. 2. MILD DEGENERATIVE CHANGE.
[2017-09-27] MEDS ORDERED: NALOXONE 0.4 MG/ML 1 ML VIAL IV PRN (10:22)
[2017-09-27 15:40] VITALS: BMI 34.6
[2017-09-27] MEDS ORDERED: MORPHINE SULFATE 4 MG/ML SYRINGE IVP PRN (19:03)
[2017-09-27] MEDS ORDERED: MORPHINE SULFATE 2 MG/ML SYRINGE IVP PRN (19:03)
[2017-09-27] MEDS ORDERED: TEMAZEPAM 15 MG CAP PO PRN (19:04)
[2017-09-27] MEDS: IOPAMIDOL-300 CONTRAST 30 ML VIAL (ORAL USE) PO PRN ×2 (19:29→20:30)
--- NOTE | 2017-09-27 19:49 | XR ---
EXAMINATION TYPE: XR chest 1V portable DATE OF EXAM: 09/27/2017 COMPARISON: 09/23/2017 HISTORY: Chest pain TECHNIQUE: Single frontal view of the chest is obtained. FINDINGS: There is no heart failure nor confluent pneumonic infiltrate. Costophrenic angles are uriel r. Heart size is normal. There is no sign of pleural effusion. IMPRESSION: No active cardiopulmonary disease. No change.
--- NOTE | 2017-09-27 21:08 | CT ---
EXAMINATION TYPE: CT abdomen pelvis wo con DATE OF EXAM: 09/27/2017 COMPARISON: 08/16/2015 HISTORY: rectal abscess, renal stones CT DLP: 1355.0 mGycm Automated exposure control for dose reduction was used. TECHNIQUE: Helical acquisition of images was performed from the lung bases through the pelvis. FINDINGS: There is some patchy linear density at the lung bases. There is no pleural effusion. Heart size is no rmal. Liver shows no focal defect. There are multiple calculi in both kidneys. Kidneys are irregular. There is no hydronephrosis. There is no retroperitoneal adenopathy. There is no evidence of a pancreatic m ass. Spleen is absent. There is no sign of free air. There is no evidence of a bowel obstruction. I see no evidence of a rec shahnaz abscess. The bladder distends smoothly. There is no evidence of ascites. Appendix is not seen. Th ere is no sign of appendicitis. IMPRESSION: MULTIPLE BILATERAL RENAL CALCULI. SMALL HEPATIC CYSTS. KIDNEYS ARE IRREGULAR CONSISTENT WITH MULTIPLE SMALL CORTICAL CYSTS. NO EVIDENCE OF RENAL OBSTRUCTION. NO EVIDENCE OF RECTAL ABSCESS. KIDNEYS APPEA R NOT SIGNIFICANTLY DIFFERENT THAN OLD EXAM. MILD SIGMOID DIVERTICULOSIS WITHOUT SIGN OF DIVERTICULIT IS.
[2017-09-27] MEDS: KETOROLAC 30 MG/ML 1 ML VIAL IVP PRN (21:15)
[2017-09-27] MEDS: HYDROcodone/APAP 7.5-325MG 1 EACH TAB PO PRN (21:15)
--- NOTE | 2017-09-27 21:37 | HP ---
HISTORY AND PHYSICAL I am covering for Dr. Gould. CHIEF COMPLAINT: Rectal pain as well as right leg pain. HISTORY OF PRESENT ILLNESS: This 47-year-old gentleman with a past medical history of multiple medical problems including ITP, MRSA, history of splenectomy, being followed by Dr. Gould in the outpatient setting was complaining of right leg pain. In July of this year, the patient was admitted with pneumonia and influenza along with sepsis. Currently the patient is complaining of right leg pain and was treated empirically in the outpatient setting because the patient also had complaining of rectal pain and some difficulties in passing stools for the last few days. Patient came to the emergency room and the patient was found to have leukocytosis. The patient has been inflammation in the right gluteal region and the patient underwent incision and drainage in the ER which showed large fluid collection and broad-spectrum IV antibiotics initiated. There is no history of fever, rigors or chills. No headache, loss of consciousness or seizures. PAST MEDICAL HISTORY: History of ITP, MRSA, splenectomy. MEDICATIONS: Prior to prior to admission include: 1. Prednisone daily. 2. Skelaxin 800 mg p.o. t.i.d. 3. Crivitz 10 mg t.i.d. p.r.n. ALLERGIES: BACTRIM. FAMILY HISTORY: History of atrial fibrillation, AICD, prostate cancer. SOCIAL HISTORY: No history of smoking. No history of alcohol intake. REVIEW OF SYSTEMS: ENT: No diminished vision. No diminished hearing. CARDIOVASCULAR: No angina or palpitations. RESPIRATORY: As mentioned earlier. GI: No nausea or vomiting. : No dysuria or retention. Nervous system: No numbness or weakness. ALLERGY/IMMUNOLOGY: No asthma or hayfever. MUSCULOSKELETAL as mentioned earlier. HEMATOLOGY/ONCOLOGY: No history of anemia. ENDOCRINE: No history of diabetes or hypothyroidism. CONSTITUTIONAL: As mentioned earlier. Dermatology: Negative. Rheumatology: Negative. Psychiatry: As mentioned earlier. PHYSICAL EXAMINATION: Alert and oriented x3. Pulse 73, blood pressure 137/84, respirations 16, temperature 97.7, pulse ox 94% on room air. HEENT: Conjunctivae normal. Oral mucosa moist. Neck is no jugular venous distention. No thyroid enlargement. No carotid bruit. No lymph node enlargement. Cardiovascular system: S1, S2 muffled. No S3, no S4. Respiratory: Breath sounds diminished in the bases. No rhonchi. No crackles. ABDOMEN: Soft, nontender. No mass palpable. Legs: No edema. No swelling. Movement of the right leg is extremely painful. Straight leg raising test is positive. The patient also had incision and drainage perirectal abscess. JOINTS: No active deforming arthropathy. Lymphatics: No lymph nodes palpable in the neck, axillae or groin. Skin: No ulcer, rash, bleeding. Nervous system: Moves all 4 limbs. No focal motor or sensory deficits. LABS: WBC 22.6, hemoglobin is 14.4 and sodium 130. ASSESSMENT: 1. Perirectal abscess with possible sepsis, status post incision and drainage. 2. Right leg pain, rule out vertebral collapse or lumbar neuropathy. 3. Increased WBC. 4. Hyponatremia. 5. History of pneumonia and atrial fibrillation. 6. History of splenectomy, idiopathic thrombocytopenia purpura, history of Methicillin- resistant Staphylococcus aureus. 7. History of degenerative joint disease. 8. FULL CODE. RECOMMENDATIONS AND DISCUSSION: In this 47-year-old gentleman who presented with multiple complex medical issues, we will monitor the patient closely, continue the current medications, symptomatic treatment, management and will initiate broad-spectrum IV antibiotics and infectious evaluation. Obtain cultures. Otherwise I would also recommend a CT scan of the abdomen and pelvis, ESR, CRP, repeat labs. overall prognosis guarded because of multiple complex medical issues and further recommendations to follow. Copy of dictation forwarded to Dr. Gould who is the primary care physician. MMODL / IJN: [id number] /
[2017-09-28 00:31] LABS: Appearance,Urine Clear (Clear); Bilirubin,Urine Negative (Negative); Blood,Urine Trace (Negative); Color,Urine Yellow; Glucose,Urine (UA) Negative (Negative); Ketones,Urine Negative (Negative); Leukocyte Esterase,Urine Negative (Negative); Mucus,Urine Few /hpf; Nitrite,Urine Negative (Negative); Protein,Urine 1+ (Negative); Specific Gravity,Urine 1.022 (1.001-1.035); WBC,Urine 6 /hpf (0-5)
[2017-09-28] MEDS: PIPERACILLIN-TAZOBACTAM 3.375 GM in DEXTROSE/WATER 1 50ML.BAG IVPB SCH ×2 (00:35→07:08)
[2017-09-28] MEDS: HEPARIN SODIUM,PORCINE 5,000 UNIT/ML 1 ML VIAL SQ SCH ×3 (00:35→17:21)
[2017-09-28 07:41] LABS: Anion Gap 6 mmol/L; Blood Urea Nitrogen 12 mg/dL (9-20); Calcium 8.3 mg/dL (8.4-10.2); Carbon Dioxide 29 mmol/L (22-30); Chloride 100 mmol/L (98-107); Glucose 100 mg/dL (74-99); Potassium 3.5 mmol/L (3.5-5.1); Sodium 135 mmol/L (137-145)
[2017-09-28 08:06] LABS: Basophils # (A) 0.1 k/uL (0-0.2); Basophils % (A) 0 %; Eosinophils # (A) 0.6 k/uL (0-0.7); Eosinophils % (A) 3 %; HCT 38.9 % (39.0-53.0); HGB 12.6 gm/dL (13.0-17.5); Lymphocytes # (A) 1.6 k/uL (1.0-4.8); Lymphocytes % (A) 10 %; MCH 29.4 pg (25.0-35.0); MCHC 32.4 g/dL (31.0-37.0); MCV 90.5 fL (80.0-100.0); Mean Platelet Volume 7.8; Monocytes # (A) 1.4 k/uL (0-1.0); Monocytes % (A) 9 %; Neutrophils # (A) 12.6 k/uL (1.3-7.7); Neutrophils % (A) 77 %; Platelet Count 285 k/uL (150-450); RDW 14.2 % (11.5-15.5); WBC 16.4 k/uL (3.8-10.6)
[2017-09-28] MEDS: HYDROcodone/APAP 7.5-325MG 1 EACH TAB PO PRN ×3 (09:03→20:46)
[2017-09-28] MEDS: KETOROLAC 30 MG/ML 1 ML VIAL IVP PRN (12:21)
--- NOTE | 2017-09-28 16:11 | PN ---
PROGRESS NOTE DATE OF SERVICE: 09/28/2017 I am covering for Dr. Gould. HISTORY OF PRESENT ILLNESS: This 47-year-old gentleman admitted with rectal abscess, also complaining of severe radicular pain on the left side. No chest pain. No palpitations. No fever. Abdominal pelvis and CAT scan done yesterday showed multiple bilateral renal calculi and other abnormalities. Not significantly different than the other old exam. No chest pain. No palpitations. No fever. EXAM: Alert and oriented x3. Pulse 86, blood pressure 150/82, respirations 16, temperature 99.2, pulse ox 94% on room air. HEENT: Conjunctivae normal. NECK: No jugular venous distention. CARDIOVASCULAR: S1, S2. RESPIRATORY: Breath sounds diminished in the bases. No rhonchi, no crackles. ABDOMEN: Soft, nontender. LEGS: Moving the right leg, painful. NERVOUS SYSTEM: No focal deficits. LABS: WBC 16, hemoglobin 12.4, sodium 135. UA noted. His CRP is 171. ESR is 23. ASSESSMENT: 1. Perirectal abscess with possible sepsis, status post incision and drainage. 2. Right leg pain, rule out lumbar radiculopathy. 3. Increased WBC. 4. Hyponatremia. 5. Renal calculi. 6. History of pneumonia. 7. Atrial fibrillation. 8. History of splenectomy. 9. ITP. 10.History of Methicillin-resistant Staphylococcus aureus. 11.History of degenerative joint disease. 12.FULL CODE. RECOMMENDATIONS AND DISCUSSION: This 47-year-old gentleman who presented with multiple complex medical issues, we will monitor the patient closely. Continue the current management and symptomatic treatment. Infectious Disease evaluation has been sought. Surgery also will be consulted. Broad- spectrum IV antibiotics. The cultures are negative so far. I would also recommend MRI of the back also to rule out the possibility of any epidural abscess. MMODL / IJN: [id number] /
--- NOTE | 2017-09-28 16:31 | P.GSCN ---
History of Present Illness Consult date: 09/28/17 Reason for Consult: Right perirectal abscess History of present illness: This is a 47-year-old male who was admitted to the hospital complaints of back and leg pain as well as perirectal pain. Patient underwent incision and drainage of a perirectal abscess. Patient has a large amount of purulent fluid. His wound has just been packed. Past Medical History Additional Past Medical History / Comment(s): ITP History of Any Multi-Drug Resistant Organisms: MRSA Year Discovered:: 07/28/17 MDRO Source:: SPUTUM Additional Past Surgical History / Comment(s): splenectomy 2006, tonsils removed , repaired R knee meniscus Past Anesthesia/Blood Transfusion Reactions: No Reported Reaction Past Psychological History: No Psychological Hx Reported Smoking Status: Never smoker Past Alcohol Use History: None Reported Past Drug Use History: None Reported - Past Family History Father Family Medical History: AFIB, AICD/Pacemaker, Cancer Additional Family Medical History / Comment(s): Prostate CA, skin CA Mother Family Medical History: No Reported History Medications and Allergies Home Medications Medication Instructions Recorded Confirmed Type HYDROcodone/APAP 10-325MG [[place] 1 tab PO TID PRN 09/27/17 09/27/17 History 10-325] Metaxalone [Skelaxin] 800 mg PO TID 09/27/17 09/27/17 History predniSONE See Taper PO DAILY 09/27/17 09/27/17 History Allergies Allergy/AdvReac Type Severity Reaction Status Date / Time sulfamethoxazole Allergy Rash/Hives Verified 09/27/17 12:05 [From Bactrim] trimethoprim [From Bactrim] Allergy Rash/Hives Verified 09/27/17 12:05 Surgical - Exam Vital Signs Temp Pulse Resp BP Pulse Ox 97.8 F 118 H 18 128/69 98 09/27/17 08:26 09/27/17 08:26 09/27/17 08:26 09/27/17 08:26 09/27/17 08:26 - General well developed, no distress - Eyes PERRL - ENT normal pinna - Neck no masses - Respiratory normal expansion - Cardiovascular Rhythm: regular - Abdomen Abdomen: soft, non tender - Rectum Right perirectal abscess with packing Results - Labs 09/28/17 06:52 09/28/17 06:52 Abnormal Lab Results - Last 24 Hours (Table) 09/27/17 09/27/17 09/27/17 Range/Units 19:16 19:16 23:59 WBC (3.8-10.6) k/uL Hgb (13.0-17.5) gm/dL Hct (39.0-53.0) % Neutrophils # (1.3-7.7) k/uL Monocytes # (0-1.0) k/uL ESR 23 H (0-15) mm/hr Sodium (137-145) mmol/L Glucose (74-99) mg/dL Calcium (8.4-10.2) mg/dL C-Reactive Protein 171.8 H (<10.0) mg/L Urine Protein 1+ H (Negative) Urine Blood Trace H (Negative) Urine WBC 6 H (0-5) /hpf Urine Mucus Few H (None) /hpf 09/28/17 09/28/17 Range/Units 06:52 06:52 WBC 16.4 H (3.8-10.6) k/uL Hgb 12.6 L (13.0-17.5) gm/dL Hct 38.9 L (39.0-53.0) % Neutrophils # 12.6 H (1.3-7.7) k/uL Monocytes # 1.4 H (0-1.0) k/uL ESR (0-15) mm/hr Sodium 135 L (137-145) mmol/L Glucose 100 H (74-99) mg/dL Calcium 8.3 L (8.4-10.2) mg/dL C-Reactive Protein (<10.0) mg/L Urine Protein (Negative) Urine Blood (Negative) Urine WBC (0-5) /hpf Urine Mucus (None) /hpf Diabetes panel 09/28/17 Range/Units 06:52 Sodium 135 L (137-145) mmol/L Potassium 3.5 (3.5-5.1) mmol/L Chloride 100 (98-107) mmol/L Carbon Dioxide 29 (22-30) mmol/L BUN 12 (9-20) mg/dL Creatinine 1.08 (0.66-1.25) mg/dL Glucose 100 H (74-99) mg/dL Calcium 8.3 L (8.4-10.2) mg/dL Calcium panel 09/28/17 Range/Units 06:52 Calcium 8.3 L (8.4-10.2) mg/dL Pituitary panel 09/28/17 Range/Units 06:52 Sodium 135 L (137-145) mmol/L Potassium 3.5 (3.5-5.1) mmol/L Chloride 100 (98-107) mmol/L Carbon Dioxide 29 (22-30) mmol/L BUN 12 (9-20) mg/dL Creatinine 1.08 (0.66-1.25) mg/dL Glucose 100 H (74-99) mg/dL Calcium 8.3 L (8.4-10.2) mg/dL Adrenal panel 09/28/17 Range/Units 06:52 Sodium 135 L (137-145) mmol/L Potassium 3.5 (3.5-5.1) mmol/L Chloride 100 (98-107) mmol/L Carbon Dioxide 29 (22-30) mmol/L BUN 12 (9-20) mg/dL Creatinine 1.08 (0.66-1.25) mg/dL Glucose 100 H (74-99) mg/dL Calcium 8.3 L (8.4-10.2) mg/dL Assessment and Plan Assessment: Right perirectal abscess. Patient's wound is draining. He'll continue receive wet-to-dry dressings.
[2017-09-28] MEDS ORDERED: VANCOMYCIN IV PER PHARMACY 1 EACH MISC MISCELLANE PRN (23:43)
[2017-09-29] MEDS: VANCOMYCIN 2,000 MG in SODIUM CHLORIDE 0.9% 500 ML IVPB SCH ×3 (00:57→18:26)
--- NOTE | 2017-09-29 06:50 | CONS ---
CONSULTATION DATE OF SERVICE: 09/28/2017. REASON FOR CONSULTATION: Right gluteal abscess. HISTORY OF PRESENT ILLNESS: The patient is a 47-year-old male with a past medical history significant for an MRSA pneumonia. The patient presenting to the ER with chief complaints of a pain to the right gluteal area that apparently started as a pimple in that area that has significantly increased in size to becoming more painful. Pain described it to be throbbing 6 to 7 out of 10 and no radiation. The patient did have evidence of folliculitis on the chest wall as well as in the bilateral groin area with these symptoms the patient has been evaluated by the ER physician. The patient did have drainage of the right gluteal abscess. Unfortunately no cultures were done. The patient subsequently has been admitted to the hospital and Infectious Disease was consulted for further recommendation regarding antibiotic therapy. REVIEW OF SYSTEMS: CONSTITUTIONAL: Positive for weakness along with some chills. EYES: No complaint. ENT: No complaint. RESPIRATORY: No complaint. CARDIOVASCULAR: No complaint. GENITOURINARY: No complaint. GASTROINTESTINAL: No complaint. MUSCULOSKELETAL: No complaint. INTEGUMENTARY: As per HPI. PSYCHOLOGICAL: No complaint. ENDOCRINE: No complaint. NEUROLOGIC: No complaint. PAST MEDICAL HISTORY: Significant for ITP and MRSA pneumonia. PAST SURGICAL HISTORY: Splenectomy in 2006. FAMILY HISTORY: Father history of skin cancer and A. fib. SOCIAL HISTORY: The patient denies smoking, drinking or drug use. ALLERGIES: Allergies to BACTRIM. MEDICATIONS: Medications include the patient is currently on Restoril, Narcan, morphine sulfate, Toradol, heparin and Zosyn. PHYSICAL EXAMINATION: On examination, blood pressure is 148/96 with a pulse of 74, temperature 99. He is 97% on room air. General description is a middle-aged male lying in bed in no distress. No tachypnea or accessory muscle of respiration use. HEENT examination shows no pallor or scleral icterus. Oral mucous membrane is dry. No pharyngeal erythema or thrush. NECK: Trachea central. No thyromegaly. LUNGS: Unlabored breathing, clear to auscultation anteriorly. No wheeze or crackle. HEART: S1, S2. Regular rate and rhythm. ABDOMEN: Soft, no tenderness. No guarding or rigidity. EXTREMITIES: No edema of feet. Examination of the right gluteal area did have an area of induration that has been draining some purulent material. Cultures were obtained. There is also evidence of folliculitis on the chest wall and the groin area. NEUROLOGICAL: Patient is awake, alert, oriented and affect normal. LABS: Hemoglobin is 12.6, white count 16.4, BUN of 12, creatinine 1.08. UA has been negative. DIAGNOSTIC IMPRESSION AND PLAN: Patient with right gluteal abscess in a patient did have previous history of a methicillin-resistant Staphylococcus aureus pneumonia likely representing a methicillin-resistant Staphylococcus aureus abscess in a patient who did have evidence of folliculitis in the chest wall as well as bilateral groin area. Clinically doubt gram-negative infection. PLAN: 1. Discontinue the Zosyn. 2. Will start the patient on vancomycin pharmacy to dose target of 15. 3. Wound culture has been obtained, both aerobic and anaerobic, that require further antibiotic therapy. 4. We will follow on his clinical condition and culture to further adjust medication if needed. Thank you for this consultation. Will follow this patient along with you. MMODL / IJN: [id number] /
[2017-09-29 08:35] LABS: Anion Gap 10 mmol/L; Blood Urea Nitrogen 12 mg/dL (9-20); Calcium 8.5 mg/dL (8.4-10.2); Carbon Dioxide 30 mmol/L (22-30); Chloride 100 mmol/L (98-107); Glucose 153 mg/dL (74-99); Potassium 3.9 mmol/L (3.5-5.1); Sodium 140 mmol/L (137-145)
[2017-09-29] MEDS: KETOROLAC 30 MG/ML 1 ML VIAL IVP PRN (08:48)
[2017-09-29 08:50] LABS: Basophils # (A) 0.1 k/uL (0-0.2); Basophils % (A) 1 %; Eosinophils # (A) 0.6 k/uL (0-0.7); Eosinophils % (A) 5 %; HGB 13.8 gm/dL (13.0-17.5); Lymphocytes # (A) 1.5 k/uL (1.0-4.8); Lymphocytes % (A) 11 %; MCH 29.5 pg (25.0-35.0); MCHC 32.1 g/dL (31.0-37.0); MCV 91.9 fL (80.0-100.0); Mean Platelet Volume 7.5; Monocytes % (A) 8 %; Neutrophils # (A) 9.8 k/uL (1.3-7.7); Neutrophils % (A) 75 %; Platelet Count 390 k/uL (150-450); RBC 4.68 m/uL (4.30-5.90); RDW 14.2 % (11.5-15.5)
[2017-09-29] MEDS: HEPARIN SODIUM,PORCINE 5,000 UNIT/ML 1 ML VIAL SQ SCH ×4 (08:50→23:17)
[2017-09-29] MEDS: HYDROcodone/APAP 7.5-325MG 1 EACH TAB PO PRN ×3 (08:59→21:56)
--- NOTE | 2017-09-29 11:46 | P.PN ---
Progress Note - Text Progress Note Date: 09/29/17 The patient is resting comfortably in his bed. He continues to have drainage from his abscess. His white count is decreased to 13,000. On exam is lesser stable. Abdomen soft. Status post drainage of rectal abscess. Patient continue local wound care.
--- NOTE | 2017-09-29 13:30 | P.PN ---
Subjective Progress Note Date: 09/29/17 47-year-old male who originally presented to emergency room with a chief complaint of back pain and pain to his right buttock. Patient was found to have a paulino-rectal abscess and underwent I&D in the ER. White count was 23.6 on admission and has been trending downward. 13.0 today. Infectious disease is on consult as patient does have a history of MRSA. He is currently receiving vancomycin. Wound cultures are currently pending. Blood cultures are negative at 24 hour fran. Patient underwent a lumbar spine MRI. Results are currently pending. Consultation was placed to Dr. De Leon regarding back pain , however he is unable for consults at this time. Patient will see Dr. De Leon outpatient but will consult Dr. Castañeda in the meantime for evaluation. Objective - Vital Signs Vital signs: Vital Signs Temp 98.2 F 09/29/17 07:05 Pulse 84 09/29/17 07:05 Resp 16 09/29/17 07:05 BP 136/87 09/29/17 07:05 Pulse Ox 99 09/29/17 07:05 Intake & Output 09/28/17 09/29/17 09/29/17 18:59 06:59 18:59 Intake Total 830 Balance 830 Weight 142.882 kg Intake: Intake, IV Titration 50 Amount Piperacillin-Tazobactam 3 50 .375 gm In Dextrose/Water 1 50ml.bag @ 12.5 mls/hr IVPB Q8HR [facility] Rx#: [id number] Oral 780 Other: Voiding Method Toilet Toilet Toilet # Voids 3 1 - Exam GENERAL: This is a -year-old in no apparent distress at the time of examination. Pleasant and cooperative. HEENT: Head is atraumatic, normocephalic. Pupils are equal, round, and reactive to light. Sclerae anicteric. Conjunctivae are clear. Mucus membranes of the mouth are moist. Neck is supple. RESPIRATORY: Clear to ausculation. No wheezes, rales, or rhonchi. No use of accessory muscles. Patient maintaining oxygen saturation greater than 92%. No chest wall tenderness is noted on palpation or with deep breathing. CARDIOVASCULAR: Regular rate and rhythm. S1 and S2 noted. No systolic or diastolic murmur auscultated. No JVD noted. No S3 or S4 noted. GASTROINTESTINAL: No distention noted. Abdomen soft and round. Normal active bowel sounds auscultated x 4 quadrants. No pain or tenderness noted upon palpation. INTEGUMENTARY: Wound s/p I&D to perirectal abscess. Dressing noted. No cyanosis. No jaundice. No rashes noted. EXTREMITIES: 2+ peripheral pulses. No evidence of peripheral edema. No calf tenderness noted. NEUROLOGIC: Cranial nerves II-XII intact. PSYCHIATRIC: Awake, alert, and oriented X 3. Appropriate affect. Intact judgement and insight. - Labs CBC & Chem 7: 09/29/17 07:53 09/29/17 07:53 Labs: Abnormal Lab Results - Last 24 Hours (Table) 09/29/17 09/29/17 Range/Units 07:53 07:53 WBC 13.0 H (3.8-10.6) k/uL Neutrophils # 9.8 H (1.3-7.7) k/uL Glucose 153 H (74-99) mg/dL Microbiology - Last 24 Hours (Table) 09/28/17 14:50 Gram Stain - Preliminary Buttock Wound Culture - Preliminary Presumptive MRSA 09/28/17 20:12 Urine Culture - Preliminary Urine,Voided 09/27/17 19:12 Blood Culture - Preliminary Blood No Growth after 24 hours 09/27/17 19:16 Blood Culture - Preliminary Blood No Growth after 24 hours 09/28/17 14:50 Anaerobic Culture - Preliminary Buttock Assessment and Plan Plan: ASSESSMENT: Perirectal abscess, present on admission, s/p I&D, cultures pending Leukocytosis, secondary to above Acute back pain, MRI pending History of MRSA x 2 History of pneumonia and sepsis, 2018 History of ITP History of splenectomy PLAN: Infectious disease on consult. Appreciate recommendations and input Continue antibiotics Await results of wound culture Consult Dr. Cabral for further evaluation Home meds as appropriate Monitor labs GI prophylaxis: Pepcid 20 mg by mouth twice a day DVT prophylaxis: Heparin 5000 units subcu every 8 hours Monitor vital signs and address as appropriate Discharge planning: Patient to return home when stable Further recommendations pending patient's course Nurse practitioner note has been reviewed by physician. Signing provider agrees with the documented findings, assessment, and plan of care.
[2017-09-29] MEDS: CYCLOBENZAPRINE 10 MG TAB PO SCH ×2 (15:59→21:56)
--- NOTE | 2017-09-29 20:07 | MR ---
EXAMINATION TYPE: MR lumbar spine wo/w con DATE OF EXAM: 09/29/2017 COMPARISON: HISTORY: rt radiculopathy ? epidural abscess TECHNIQUE: Multiplanar, multisequence images of the lumbar spine were acquired utilizing 14 mL intravenous Gadav ist gadolinium contrast. The lumbar vertebra have normal alignment. There is mild narrowing of disc spaces throughout the lumb ar spine and more at L5-S1. There is no compression fracture. There is no lumbar paraspinal mass. I s ee no focal bone destruction. The neural foramina are fairly well-maintained. There is no spinal sten osis. There is no evidence of any epidural fluid collection. The visualized sacroiliac joints appear intact. There is no spinal stenosis. There is no pathologic enhancement. There is a minute posterior disc bulge at L5-S1. IMPRESSION: Minor degenerative disc changes in the lumbar spine. No fracture. No spinal stenosis. No evidence of epidural abscess.
--- NOTE | 2017-09-29 20:20 | P.CONS ---
History of Present Illness - Reason for Consult Consult date: 09/29/17 Requesting physician: Sebas Gould - Chief Complaint right leg - History of Present Illness Thank you Dr. Gould or allowing me to participate in the care of Mr. Meléndez. Mr Meléndez is a 47-year-old right-handed gentleman with 5 children who lives with his family in their home. 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 Mr Meléndez presented to the emergency department for evaluation of what he deemed sciatica that started about 3 weeks ago and was not improving. He states the pain started about 3 weeks ago when he was moving some furniture and he has a history of low back pain and low back problems. He was evaluated by his primary care physician in the outpatient setting and was given oral steroids and muscle relaxers however he states that the pain is continuing to get worse. Currently he describes pain in his right buttock that radiates down his right lower extremity that he rates as 6-7/10 in intensity, constant worse with standing, lying flat and walking. He states lying with a beanie baby under his right buttock helps alleviate the pain. He states that this pain was the original reason for him to visit the ER however upon physical examination he was found to have an abscess in his had incision and drainage of this abscess and is now on IV antibiotics. Review of Systems 10 point review of systems was performed and is negative unless otherwise indicated in HPI. Past Medical History Additional Past Medical History / Comment(s): ITP History of Any Multi-Drug Resistant Organisms: MRSA Year Discovered:: 07/28/17 MDRO Source:: SPUTUM Additional Past Surgical History / Comment(s): splenectomy 2007, tonsils removed , repaired R knee meniscus Past Anesthesia/Blood Transfusion Reactions: No Reported Reaction Past Psychological History: No Psychological Hx Reported Smoking Status: Never smoker Past Alcohol Use History: None Reported Past Drug Use History: None Reported - Past Family History Father Family Medical History: AFIB, AICD/Pacemaker, Cancer Additional Family Medical History / Comment(s): Prostate CA, skin CA Mother Family Medical History: No Reported History Medications and Allergies Home Medications Medication Instructions Recorded Confirmed Type HYDROcodone/APAP 10-325MG [[place] 1 tab PO TID PRN 09/27/17 09/27/17 History 10-325] Metaxalone [Skelaxin] 800 mg PO TID 09/27/17 09/27/17 History predniSONE See Taper PO DAILY 09/27/17 09/27/17 History Allergies Allergy/AdvReac Type Severity Reaction Status Date / Time sulfamethoxazole Allergy Rash/Hives Verified 09/27/17 12:05 [From Bactrim] trimethoprim [From Bactrim] Allergy Rash/Hives Verified 09/27/17 12:05 Physical Exam Osteopathic Statement: *. No significant issues noted on an osteopathic structural exam other than those noted in the History and Physical/Consult. Vitals: Vital Signs Temp Pulse Resp BP Pulse Ox 09/29/17 14:24 98.2 F 76 16 152/96 98 09/29/17 07:05 98.2 F 84 16 136/87 99 09/28/17 21:19 99.0 F 74 18 148/96 97 Intake and Output 09/29/17 09/29/17 09/29/17 06:59 14:59 22:59 Intake Total 500 Balance 500 Intake: Intake, IV Titration 500 Amount Vancomycin 2,000 mg In 500 Sodium Chloride 0.9% 500 ml @ 167 mls/hr IVPB Q8H [facility] Rx#:[id number] Other: Voiding Method Toilet Toilet Toilet # Voids 1 Gen.: Patient is alert and oriented not in acute distress HEENT: Normocephalic atraumatic extraocular muscles intact Cardiovascular: Regular rate and rhythm no peripheral edema noted Respiratory: No accessory muscle use noted breathing was nonlabored Abdomen: Soft nontender nondistended Musculoskeletal: Forward flexion, extension, side bending right, facet loading right and left reproduce his symptoms. Hip range of motion was normal without pain, Willard's maneuver normal. Hip flexion, knee extension, dorsiflexion, inversion and eversion were 5/5 bilaterally, EHL 4/5 right, 5/5 left Neurologic: Patient ambulates with an antalgic gait, can heel and toe stand, patellar and Achilles reflexes 2/4 bilaterally, sensation to light touch normal bilaterally Results Results: Reviewed images of MRI of the lumbar spine obtained this admission which revealed severe L5-S1 disc degeneration with Modic changes, there is increased signal intensity in the bilateral L5 pedicles, there was moderate bilateral L5 neural foraminal narrowing. CBC & Chem 7: 09/29/17 07:53 09/29/17 07:53 Labs: Abnormal Lab Results - Last 24 Hours (Table) 09/29/17 09/29/17 Range/Units 07:53 07:53 WBC 13.0 H (3.8-10.6) k/uL Neutrophils # 9.8 H (1.3-7.7) k/uL Glucose 153 H (74-99) mg/dL Microbiology - Last 24 Hours (Table) 09/28/17 14:50 Gram Stain - Preliminary Buttock Wound Culture - Preliminary Presumptive MRSA 09/28/17 20:12 Urine Culture - Preliminary Urine,Voided 09/27/17 19:12 Blood Culture - Preliminary Blood No Growth after 24 hours 09/27/17 19:16 Blood Culture - Preliminary Blood No Growth after 24 hours 09/28/17 14:50 Anaerobic Culture - Preliminary Buttock Assessment and Plan Assessment: Right L5 radiculopathy (1) Lumbar disc disease with radiculopathy Current Visit: Yes Status: Acute Code(s): M51.16 - INTERVERTEBRAL DISC DISORDERS W RADICULOPATHY, LUMBAR REGION SNOMED Code(s): 097092822 (2) Lumbosacral facet joint syndrome Current Visit: Yes Status: Acute Code(s): M46.97 - UNSPECIFIED INFLAMMATORY SPONDYLOPATHY, LUMBOSACRAL REGION SNOMED Code(s): 455006148 (3) Spondylosis Current Visit: Yes Status: Acute Code(s): M47.9 - SPONDYLOSIS, UNSPECIFIED SNOMED Code(s): 694082840 Plan: Since the patient is already been on oral steroids with minimal benefit at this time I recommend pain control with tramadol 50 mg 1-2 tablets every 6 hours as needed. We will initiate Neurontin 300 mg nightly for 3 nights, then twice daily for 3 days, then 3 times daily. Patient can then follow-up as outpatient for right L5 epidural steroid injections as his infection needs to be under control prior to considering procedural intervention. Time with Patient: Greater than 30
[2017-09-29] MEDS ORDERED: GABAPENTIN 300 MG CAP PO STA (20:23)
[2017-09-29] MEDS: FAMOTIDINE 20 MG TAB PO SCH (21:56)
[2017-09-29] MEDS: traMADol 50 MG TAB PO PRN (21:57)
--- NOTE | 2017-09-29 23:17 | PN ---
PROGRESS NOTE DATE OF SERVICE: 09/29/2017. REASON FOR FOLLOWUP: Right gluteal abscess and folliculitis. INTERVAL HISTORY: The patient is afebrile. He is currently breathing comfortably. Denies having any chest pain, shortness of breath or cough. No abdominal pain or any worsening pain to the right gluteal area. EXAMINATION: Blood pressure 136/80 with a pulse of 79, temperature of 99. He is 96% on room air. General description is a middle-aged male lying in bed in no distress. RESPIRATORY SYSTEM: Unlabored breathing. Clear to auscultation anteriorly. HEART: S1, S2. Regular rate and rhythm. ABDOMEN: Soft. No tenderness. EXTREMITIES: No edema of the feet. LABS: Hemoglobin 13.8, white count of 13,000. BUN of 12, creatinine 1.08. The local wound culture is presumptive MRSA. DIAGNOSTIC IMPRESSION AND PLAN: Patient with a right gluteal abscess with evidence of cellulitis and folliculitis, status post drainage and ER culture with presumptive methicillin-resistant Staphylococcus aureus. Patient at this time to continue with vancomycin, Pharmacy to dose while waiting for the sensitivity to finalize. Continue supportive care. MMODL / IJN: [id number] /
[2017-09-30] MEDS: VANCOMYCIN 2,000 MG in SODIUM CHLORIDE 0.9% 500 ML IVPB SCH ×3 (02:26→17:03)
[2017-09-30 08:10] LABS: Basophils # (A) 0.1 k/uL (0-0.2); Basophils % (A) 1 %; Eosinophils # (A) 0.7 k/uL (0-0.7); Eosinophils % (A) 10 %; HCT 41.2 % (39.0-53.0); HGB 12.6 gm/dL (13.0-17.5); Lymphocytes # (A) 1.9 k/uL (1.0-4.8); Lymphocytes % (A) 27 %; MCH 28.1 pg (25.0-35.0); MCHC 30.5 g/dL (31.0-37.0); MCV 92.1 fL (80.0-100.0); Mean Platelet Volume 6.8; Monocytes # (A) 0.6 k/uL (0-1.0); Monocytes % (A) 8 %; Neutrophils # (A) 3.7 k/uL (1.3-7.7); Neutrophils % (A) 51 %; Platelet Count 441 k/uL (150-450); RBC 4.47 m/uL (4.30-5.90); RDW 14.1 % (11.5-15.5); WBC 7.1 k/uL (3.8-10.6)
[2017-09-30 08:17] LABS: Anion Gap 6 mmol/L; Blood Urea Nitrogen 11 mg/dL (9-20); Calcium 8.4 mg/dL (8.4-10.2); Carbon Dioxide 31 mmol/L (22-30); Chloride 105 mmol/L (98-107); Glucose 95 mg/dL (74-99); Potassium 4.5 mmol/L (3.5-5.1); Sodium 142 mmol/L (137-145)
[2017-09-30] MEDS: HEPARIN SODIUM,PORCINE 5,000 UNIT/ML 1 ML VIAL SQ SCH ×2 (08:22→16:56)
[2017-09-30] MEDS: FAMOTIDINE 20 MG TAB PO SCH ×2 (08:23→21:19)
[2017-09-30] MEDS: predniSONE 10 MG TAB PO SCH (08:23)
[2017-09-30] MEDS: CYCLOBENZAPRINE 10 MG TAB PO SCH ×3 (08:23→21:19)
[2017-09-30] MEDS: HYDROcodone/APAP 7.5-325MG 1 EACH TAB PO PRN ×2 (08:29→16:53)
--- NOTE | 2017-09-30 09:50 | P.PN ---
Subjective Progress Note Date: 09/30/17 47-year-old male who originally presented to emergency room with a chief complaint of back pain and pain to his right buttock. Patient was found to have a paulino-rectal abscess and underwent I&D in the ER. White count was 23.6 on admission and has been trending downward. 13.0 today. Infectious disease is on consult as patient does have a history of MRSA. He is currently receiving vancomycin. Wound cultures are currently pending. Blood cultures are negative at 24 hour fran. Patient underwent a lumbar spine MRI. Results are currently pending. Consultation was placed to Dr. De Leon regarding back pain , however he is unable for consults at this time. Patient will see Dr. De Leon outpatient but will consult Dr. Castañeda in the meantime for evaluation. 09/30/2017 Patient seen and examined at the bedside. Patient states his pain is tolerable at this time. He was evaluated by Dr. Castañeda who initiated Tramadol and Neurontin 300mg at HS x 3 days, then BID x 3 days, and then TID. Patient was encouraged to follow up outpatient for right L5 epidural injection after his injection has resolved. Wound culture is positive for MRSA. Patient reports abscess continues to drain and has been packed many times. He remains on Vanco. Infectious disease is following. Awaiting sensitivity results. Objective - Vital Signs Vital signs: Vital Signs Temp 98.0 F 09/30/17 05:28 Pulse 60 09/30/17 05:28 Resp 16 09/30/17 05:28 BP 139/93 09/30/17 05:28 Pulse Ox 93 L 09/30/17 05:28 Intake & Output 09/29/17 09/30/17 09/30/17 18:59 06:59 18:59 Intake Total 500 Balance 500 Intake: Intake, IV Titration 500 Amount Vancomycin 2,000 mg In 500 Sodium Chloride 0.9% 500 ml @ 167 mls/hr IVPB Q8H [facility] Rx#:[id number] Other: Voiding Method Toilet Toilet Toilet # Voids 1 - Exam GENERAL: This is a -year-old in no apparent distress at the time of examination. Pleasant and cooperative. HEENT: Head is atraumatic, normocephalic. Pupils are equal, round, and reactive to light. Sclerae anicteric. Conjunctivae are clear. Mucus membranes of the mouth are moist. Neck is supple. RESPIRATORY: Clear to ausculation. No wheezes, rales, or rhonchi. No use of accessory muscles. Patient maintaining oxygen saturation greater than 92%. No chest wall tenderness is noted on palpation or with deep breathing. CARDIOVASCULAR: Regular rate and rhythm. S1 and S2 noted. No systolic or diastolic murmur auscultated. No JVD noted. No S3 or S4 noted. GASTROINTESTINAL: No distention noted. Abdomen soft and round. Normal active bowel sounds auscultated x 4 quadrants. No pain or tenderness noted upon palpation. INTEGUMENTARY: Wound s/p I&D to perirectal abscess. Dressing noted. No cyanosis. No jaundice. No rashes noted. EXTREMITIES: 2+ peripheral pulses. No evidence of peripheral edema. No calf tenderness noted. NEUROLOGIC: Cranial nerves II-XII intact. PSYCHIATRIC: Awake, alert, and oriented X 3. Appropriate affect. Intact judgement and insight. - Labs CBC & Chem 7: 09/30/17 07:37 09/30/17 07:37 Labs: Abnormal Lab Results - Last 24 Hours (Table) 09/30/17 09/30/17 Range/Units 07:37 07:37 Hgb 12.6 L (13.0-17.5) gm/dL MCHC 30.5 L (31.0-37.0) g/dL Carbon Dioxide 31 H (22-30) mmol/L Microbiology - Last 24 Hours (Table) 09/28/17 14:50 Gram Stain - Preliminary Buttock Wound Culture - Preliminary Presumptive MRSA 09/28/17 20:12 Urine Culture - Final Urine,Voided 09/27/17 19:12 Blood Culture - Preliminary Blood No Growth after 48 hours 09/27/17 19:16 Blood Culture - Preliminary Blood No Growth after 48 hours Assessment and Plan Plan: ASSESSMENT: Perirectal abscess, present on admission, s/p I&D, cultures positive for MRSA Leukocytosis, secondary to above Acute back pain, secondary to lumbar disc disease with right L5 radiculopathy History of MRSA x 2 History of pneumonia and sepsis, 2018 History of ITP History of splenectomy PLAN: Infectious disease on consult. Appreciate recommendations and input Continue antibiotics. awaiting sensitivity results. Continue tramadol and neurontin as recommended by Dr. Castañeda. Home meds as appropriate Monitor labs GI prophylaxis: Pepcid 20 mg by mouth twice a day DVT prophylaxis: Heparin 5000 units subcu every 8 hours Monitor vital signs and address as appropriate Discharge planning: Patient to return home when stable Further recommendations pending patient's course Nurse practitioner note has been reviewed by physician. Signing provider agrees with the documented findings, assessment, and plan of care.
--- NOTE | 2017-09-30 15:15 | P.PN ---
Progress Note - Text Progress Note Date: 09/30/17 The patient resting comfortably in his bed. He has had his dressing change performed today. His wound culture his shown MRSA. On exam there is decreased inflammation and induration of his perirectal abscess. Patient will continue receive IV antibiotic. And local wound care. We will follow with you.
[2017-09-30] MEDS ORDERED: VANCOMYCIN TROUGH DUE 1 EACH MISC MISCELLANE ONE (16:00)
--- NOTE | 2017-09-30 20:45 | P.PN ---
Subjective Progress Note Date: 09/30/17 Principal diagnosis: sciatica Patient states he did sleep through the night last night and does not think any changes need to be made to the medication regimen at this time as he thinks his pain is fairly well controlled. He has hopes that he'll be discharged tomorrow. He denies fevers chills nausea vomiting shortness of breath chest pain. Objective - Vital Signs Vital signs: Vital Signs Temp 98.4 F 09/30/17 14:09 Pulse 71 09/30/17 14:09 Resp 16 09/30/17 14:09 BP 118/74 09/30/17 14:09 Pulse Ox 97 09/30/17 14:09 Intake & Output 09/30/17 09/30/17 10/01/17 06:59 18:59 06:59 Intake Total 500 Balance 500 Intake: Intake, IV Titration 500 Amount Vancomycin 2,000 mg In 500 Sodium Chloride 0.9% 500 ml @ 167 mls/hr IVPB Q8H [facility] Rx#:[id number] Other: Voiding Method Toilet Toilet # Voids 1 1 - Exam Gen.: Patient is alert and oriented not in acute distress HEENT: Normocephalic atraumatic extraocular muscles intact Cardiovascular: Regular rate and rhythm no peripheral edema noted Respiratory: No accessory muscle use noted breathing was nonlabored Abdomen: Soft nontender nondistended Musculoskeletal: Forward flexion, extension, side bending right, facet loading right and left reproduce his symptoms. Hip range of motion was normal without pain, Willard's maneuver normal. Hip flexion, knee extension, dorsiflexion, inversion and eversion were 5/5 bilaterally, EHL 4/5 right, 5/5 left Neurologic: Patient ambulates with an antalgic gait, can heel and toe stand, patellar and Achilles reflexes 2/4 bilaterally, sensation to light touch normal bilaterally - Labs CBC & Chem 7: 09/30/17 07:37 09/30/17 07:37 Labs: Abnormal Lab Results - Last 24 Hours (Table) 09/30/17 09/30/17 Range/Units 07:37 07:37 Hgb 12.6 L (13.0-17.5) gm/dL MCHC 30.5 L (31.0-37.0) g/dL Carbon Dioxide 31 H (22-30) mmol/L Microbiology - Last 24 Hours (Table) 09/28/17 14:50 Anaerobic Culture - Preliminary Buttock 09/28/17 14:50 Gram Stain - Final Buttock Wound Culture - Final Methicillin resist S. aureus 09/28/17 20:12 Urine Culture - Final Urine,Voided 09/27/17 19:12 Blood Culture - Preliminary Blood No Growth after 48 hours 09/27/17 19:16 Blood Culture - Preliminary Blood No Growth after 48 hours Assessment and Plan Assessment: Right L5 radiculopathy (1) Lumbar disc disease with radiculopathy Current Visit: Yes Status: Acute Code(s): M51.16 - INTERVERTEBRAL DISC DISORDERS W RADICULOPATHY, LUMBAR REGION SNOMED Code(s): 173594727 (2) Lumbosacral facet joint syndrome Current Visit: Yes Status: Acute Code(s): M46.97 - UNSPECIFIED INFLAMMATORY SPONDYLOPATHY, LUMBOSACRAL REGION SNOMED Code(s): 730272587 (3) Spondylosis Current Visit: Yes Status: Acute Code(s): M47.9 - SPONDYLOSIS, UNSPECIFIED SNOMED Code(s): 076009280 Plan: Will continue current medication regimen. Patient can be discharged on tramadol 50 mg 1-2 every 6 hours as needed. Continue gabapentin 300 mg titration daily at bedtime for 2 more nights, then twice daily for 3 days then 3 times daily. Can continue Flexeril. Patient can follow-up in the office 7 days after discharge for evaluation and scheduling of right L5-S1 lumbar epidural steroid injection if necessary. He can also be given a prescription at time of discharge for outpatient physical therapy. Please call with questions or concerns. Time with Patient: Less than 30
[2017-09-30] MEDS: traMADol 50 MG TAB PO PRN (21:19)
[2017-09-30] MEDS: GABAPENTIN 300 MG CAP PO SCH (21:20)
[2017-09-30] MEDS ORDERED: HEPARIN SODIUM,PORCINE 5,000 UNIT/ML 1 ML VIAL ONE (23:44)
[2017-10-01] MEDS: HEPARIN SODIUM,PORCINE 5,000 UNIT/ML 1 ML VIAL SQ SCH ×4 (05:08→23:30)
[2017-10-01] MEDS: VANCOMYCIN 1,750 MG in SODIUM CHLORIDE 0.9% 500 ML IVPB SCH ×3 (06:01→21:06)
[2017-10-01 07:22] LABS: Basophils # (A) 0.1 k/uL (0-0.2); Basophils % (A) 1 %; Eosinophils # (A) 0.5 k/uL (0-0.7); Eosinophils % (A) 6 %; HCT 38.3 % (39.0-53.0); HGB 12.1 gm/dL (13.0-17.5); Lymphocytes % (A) 34 %; MCH 28.8 pg (25.0-35.0); MCHC 31.5 g/dL (31.0-37.0); MCV 91.4 fL (80.0-100.0); Mean Platelet Volume 7.3; Monocytes # (A) 0.9 k/uL (0-1.0); Monocytes % (A) 10 %; Neutrophils # (A) 4.2 k/uL (1.3-7.7); Neutrophils % (A) 47 %; Platelet Count 397 k/uL (150-450); RBC 4.19 m/uL (4.30-5.90); RDW 14.1 % (11.5-15.5); WBC 8.8 k/uL (3.8-10.6)
--- NOTE | 2017-10-01 07:27 | PN ---
PROGRESS NOTE DATE OF SERVICE: 09/30/2017. REASON FOR FOLLOWUP: Right gluteal abscess. INTERVAL HISTORY: The patient is afebrile. He is breathing comfortably. Denies having any chest pain or shortness of breath or cough. worsening pain to the right gluteal area. PHYSICAL EXAMINATION: On examination, blood pressure 118/74 with a pulse of 71, temperature 98.4. He is 97% on room air. General description is a middle aged male lying in bed in no distress. RESPIRATORY SYSTEM: Unlabored breathing, clear to auscultation anteriorly. HEART: S1, S2. Regular rate and rhythm. ABDOMEN: Soft, no tenderness. The right gluteal wound is slightly decreased in intensity. LABS: White count normalized to 7.1 with a BUN of 11, creatinine 1.03. DIAGNOSTIC IMPRESSION AND PLAN: Patient with methicillin-resistant Staphylococcus aureus right gluteal abscess status post drainage with evidence of folliculitis. Recommend to keep the patient on IV vancomycin for another 24 to 48 hours and if the patient continues to improve, hopefully finish therapy with oral antibiotics. Continue supportive care. MMODL / IJN: [id number] /
[2017-10-01 07:35] LABS: Anion Gap 7 mmol/L; Blood Urea Nitrogen 9 mg/dL (9-20); Calcium 8.3 mg/dL (8.4-10.2); Carbon Dioxide 28 mmol/L (22-30); Chloride 105 mmol/L (98-107); Glucose 91 mg/dL (74-99); Potassium 3.9 mmol/L (3.5-5.1); Sodium 140 mmol/L (137-145)
[2017-10-01] MEDS: FAMOTIDINE 20 MG TAB PO SCH ×2 (09:27→21:06)
[2017-10-01] MEDS: CYCLOBENZAPRINE 10 MG TAB PO SCH ×3 (09:28→22:02)
[2017-10-01] MEDS: predniSONE 10 MG TAB PO SCH (09:28)
[2017-10-01] MEDS: HYDROcodone/APAP 7.5-325MG 1 EACH TAB PO PRN (13:02)
[2017-10-01] MEDS: KETOROLAC 30 MG/ML 1 ML VIAL IVP PRN (15:09)
--- NOTE | 2017-10-01 19:36 | PN ---
PROGRESS NOTE DATE OF SERVICE: 10/01/2017 I am covering for Dr. Gould. This 47-year-old gentleman who was admitted with a perirectal abscess, also had right leg pain. Dr. Castañeda is following the patient and planning outpatient treatment. The cultures showed MRSA. The patient is being closely monitored. Patient on IV antibiotics. Patient on IV vancomycin. No chest pain. No palpitations. No fever. Infectious Disease is following the patient closely. EXAM: Alert and oriented x3. Pulse 71, blood pressure 130/78, respirations 16, temperature 98 degrees, pulse ox 91% on room air. HEENT: Conjunctivae normal. Oral mucosa moist. NECK: No jugular venous distention. No carotid bruits. No lymph node enlargement. CARDIOVASCULAR: S1, S2 muffled. RESPIRATORY: Breath sounds diminished in the bases. No rhonchi. No crackles. ABDOMEN: Soft, nontender. LEGS: No edema. NERVOUS SYSTEM: No focal deficits. LABS: WBC 4, hemoglobin is 12.1. ASSESSMENT: 1. A perirectal abscess with possible sepsis present on admission with methicillin- resistant Staphylococcus aureus, status post incision and drainage. 2. Right leg pain, possibly lumbar radiculopathy. 3. Increased WBC. 4. Hyponatremia. 5. Renal calculi. 6. History of pneumonia. 7. Atrial fibrillation. 8. History of splenectomy for immune thrombocytopenic purpura. 9. History of Methicillin-resistant Staphylococcus aureus. 10.History of degenerative joint disease. 11.FULL CODE. RECOMMENDATIONS AND DISCUSSION: Continue with current medical management and symptomatic treatment. Otherwise at this time, I recommend continuing with continue with antibiotics. Further recommendations per Dr. Maria and closely monitor. Further recommendations to follow. MMODL / IJN: [id number] /
[2017-10-01] MEDS: GABAPENTIN 300 MG CAP PO SCH (21:06)
[2017-10-01 21:40] VITALS: RESP 18
[2017-10-01] MEDS: traMADol 50 MG TAB PO PRN (22:01)
--- NOTE | 2017-10-01 22:48 | PN ---
PROGRESS NOTE DATE OF SERVICE: 10/01/2017. REASON FOR FOLLOWUP: Right gluteal abscess and folliculitis, and MRSA. INTERVAL HISTORY: The patient is afebrile, has been breathing comfortably. Denies having any chest pain or shortness of breath or cough. The patient had developed some inflammation in his IV site that has been changed. No abdominal pain. No diarrhea. Denies any pain to the right gluteal area. EXAMINATION: Blood pressure is 125/66, pulse of 78, temperature 97.3. He is 96% on room air. General description is a middle-aged male lying in bed in no distress. Respiratory system: Unlabored breathing, clear to auscultation anteriorly. Heart S1, S2. Regular rate and rhythm. Abdomen soft. No tenderness. LABS: Hemoglobin 12.1, white count of 8.9, BUN of 9, creatinine 0.89. DIAGNOSTIC IMPRESSION AND PLAN: Patient MRSA right gluteal abscess status post drainage. The patient seemed to have shown clinical improvement. Will be able to finish therapy with oral doxycycline 100 mg b.i.d. for another 10 days tomorrow. Continue supportive care. MMODL / RYLIEN: [id number] /
[2017-10-02] MEDS: VANCOMYCIN 1,750 MG in SODIUM CHLORIDE 0.9% 500 ML IVPB SCH (05:24)
--- NOTE | 2017-10-02 07:18 | P.PN ---
Progress Note - Text Progress Note Date: 10/01/17 the patient is resting comfortably in his bed. He's had decreased drainage fromperirectal abscess. His pain is improved. On exam his vital signs are stable. His abdomen is soft. His dressing is intact. Status post drainage of perirectal abscess. Patient continue IV antibiotic. I dissected discharged home in the next 24 hours.
[2017-10-02 07:37] LABS: Basophils # (A) 0.1 k/uL (0-0.2); Basophils % (A) 1 %; Eosinophils # (A) 0.4 k/uL (0-0.7); Eosinophils % (A) 5 %; HCT 39.1 % (39.0-53.0); HGB 12.5 gm/dL (13.0-17.5); Lymphocytes # (A) 2.5 k/uL (1.0-4.8); Lymphocytes % (A) 32 %; MCV 90.6 fL (80.0-100.0); Mean Platelet Volume 7.2; Monocytes # (A) 0.6 k/uL (0-1.0); Monocytes % (A) 8 %; Neutrophils % (A) 52 %; Platelet Count 424 k/uL (150-450); RBC 4.31 m/uL (4.30-5.90); RDW 13.9 % (11.5-15.5); WBC 7.7 k/uL (3.8-10.6)
[2017-10-02 07:53] LABS: Anion Gap 7 mmol/L; Blood Urea Nitrogen 9 mg/dL (9-20); Calcium 8.3 mg/dL (8.4-10.2); Carbon Dioxide 28 mmol/L (22-30); Chloride 105 mmol/L (98-107); Glucose 124 mg/dL (74-99); Potassium 3.7 mmol/L (3.5-5.1); Sodium 140 mmol/L (137-145)
[2017-10-02] MEDS: HEPARIN SODIUM,PORCINE 5,000 UNIT/ML 1 ML VIAL SQ SCH (09:15)
[2017-10-02] MEDS: CYCLOBENZAPRINE 10 MG TAB PO SCH (09:17)
[2017-10-02] MEDS: predniSONE 10 MG TAB PO SCH (09:17)
[2017-10-02] MEDS: FAMOTIDINE 20 MG TAB PO SCH (09:17)
[2017-10-02] MEDS ORDERED: VANCOMYCIN TROUGH DUE 1 EACH MISC MISCELLANE ONE (12:00)
[2017-10-02 15:04] VITALS: BP 144/86; PULSE 77; TEMP 98
--- NOTE | 2017-10-02 15:43 | DS ---
DISCHARGE SUMMARY I am covering for Dr. Gould. FINAL DIAGNOSES: 1. Perirectal abscess with possible sepsis present on admission with MRSA status post incision and drainage. 2. Right leg pain, possible lumbar radiculopathy. 3. Increased WBC. 4. Hyponatremia. 5. Renal calculi. 6. History of pneumonia. 7. History of atrial fibrillation. 8. History of splenectomy for idiopathic thrombocytopenia purpura. 9. History of Methicillin-resistant Staphylococcus aureus. 10.History of degenerative joint disease. 11.FULL CODE. DISCHARGE DISPOSITION: The patient is being discharged in stable condition with guarded prognosis. HISTORY OF PRESENT ILLNESS: This 47-year-old gentleman with past medical of multiple medical problems was admitted with perirectal abscess. MRSA grown. Patient underwent incision and drainage and antibiotic treatment. Dr. Maria saw the patient. On exam, vitals are stable. Cardiovascular: S1, S2. Abdomen soft. Nontender. Central nervous system: No focal deficits. The patient also had back pain. Lumbar MRI was unremarkable. Seen by Dr. De Leon and Dr. Mooney also. Recommended outpatient followup. Follow up with Dr. Gould in 2-3 days. Follow up with Infectious Disease and Dr. De Leon as recommended. MEDICATIONS: 1. Doxycycline 100 mg p.o. b.i.d. 2. Auxvasse 10 mg t.i.d. p.r.n. 3. Cephalexin 800 mg t.i.d. 4. Doxycycline 100 mg p.o. b.i.d. for 10 days. 5. Neurontin 300 mg q.h.s.. The patient is being discharged in stable condition with guarded prognosis. MMODL / IJN: [id number] /
--- NOTE | 2017-10-02 16:22 | PN ---
PROGRESS NOTE DATE OF SERVICE: 10/02/2017. REASON FOR FOLLOWUP: Right gluteal abscess and folliculitis, MRSA. INTERVAL HISTORY: The patient is afebrile, has been breathing comfortably. Denies having any chest pain or shortness of breath or cough. No abdominal pain. No pain to the gluteal area. EXAMINATION: Blood pressure 144/86 with pulse of 77, temperature 98. He is 93% on room air. General description is a middle-aged male lying in bed in no distress. Respiratory system: Unlabored breathing. Clear to auscultation anteriorly. Heart S1, S2. Regular rate and rhythm. Abdomen soft, no tenderness. Overall swelling and redness to the gluteal area has decreased. No drainage. LABS: White count 7.7, creatinine 0.90. DIAGNOSTIC IMPRESSION AND PLAN: Patient with Methicillin-resistant Staphylococcus aureus right gluteal abscess status post drainage. The patient received about 10 days of IV vancomycin. The patient will be transitioned to oral doxycycline 100 mg twice a day for another 10 days with close outpatient followup. MMODL / IJN: [id number] /
== END 2017-10-02 17:11 | disposition home health service (06) | DRG 872 ==
LOC: EC 08:23 → 5MS5E 10:39 → OBSVTOIN 09-29 15:38
PROVIDERS: ADMIT Family Medicine; ATTEND Family Medicine
PROC: 0D9P3ZX Drainage of Rectum, Percutaneous Approach, Diagnostic (ICD-10-PCS; principal; 2017-09-28)
DX: A41.02 Sepsis due to Methicillin resistant Staphylococcus aureus (principal); K61.1 Rectal abscess; D69.3 Immune thrombocytopenic purpura; E87.1 Hypo-osmolality and hyponatremia; I48.91 Unspecified atrial fibrillation; L73.9 Follicular disorder, unspecified; M47.9 Spondylosis, unspecified; M51.16 Intervertebral disc disorders with radiculopathy, lumbar region; N20.0 Calculus of kidney; X50.0XXS Overexertion from strenuous movement or load, sequela; Z80.42 Family history of malignant neoplasm of prostate; Z86.14 Personal history of Methicillin resistant Staphylococcus aureus infection; Z87.01 Personal history of pneumonia (recurrent); Z90.81 Acquired absence of spleen; Z79.52 Long term (current) use of systemic steroids; Z79.899 Other long term (current) drug therapy
CPT/HCPCS: 10060; 36415; 71045; 72158; 73502; 74176; 80048; 80202; 81001; 83735; 85025; 85652; 86140; 87040; 87070; 87075; 87077; 87086; 87186; 87205; 96361; 96365; 96366; 99284

== ENCOUNTER → 2018-01-07 | Outpatient (CLI) | payer BC ==
--- NOTE | 2018-01-07 16:56 | US ---
EXAMINATION TYPE: US venous doppler duplex LE LT DATE OF EXAM: 01/07/2018 4:38 PM COMPARISON: NONE CLINICAL HISTORY: swelling DVT, I82.409. SIDE PERFORMED: Left TECHNIQUE: The lower extremity deep venous system is examined utilizing real time linear array sonog zuleima with graded compression, doppler sonography and color-flow sonography. VESSELS IMAGED: External Iliac Vein (EIV) Common Femoral Vein Deep Femoral Vein Greater Saphenous Vein * Femoral Vein Popliteal Vein Small Saphenous Vein * Proximal Calf Veins (* superficial vessels) Left Leg: Positive for DVT, at the distal pop vein through prox calf veins, the vessel is distended with internal echoes and not compressible. IMPRESSION: There is evidence of acute deep venous thrombosis in the tibial veins.
== END | disposition home or self-care (01) ==
LOC: RADUSWWP 16:19
PROVIDERS: ATTEND Family Medicine
DX: I82.442 Acute embolism and thrombosis of left tibial vein (principal)

== ENCOUNTER → 2022-01-22 | Outpatient (CLI) | payer BC ==
--- NOTE | 2022-01-22 21:51 | CT ---
EXAMINATION TYPE: CT urogram wo/w con DATE OF EXAM: 01/22/2022 COMPARISON: Prior CTs 2018 and 2016 HISTORY: GROSS HEMATURIA, hx of kidney stones CT DLP: 9265.7 mGycm, Automated Exposure Control for Dose Reduction was Utilized. CONTRAST: CT scan of the abdomen and pelvis is performed with oral and without and with IV Contrast, patient in jected with 100 mL of Isovue 300. Urogram protocol with 3-D reconstructed images created on an [employer] workstation and reviewed. FINDINGS: KUB: Noncontrast images show approximately 5 left-sided renal calculi including dominant 1.8 cm calcu aide lower pole level coronal image 108. There are 2 right-sided renal calculi and current study inclu ding dominant 2.6 cm calculus upper pole right kidney axial image 34. Postcontrast images show symmetric cortical medullary uptake and excretion bilaterally without hydron ephrosis seen. There are innumerable thin-walled cysts of varying sizes shape scattered throughout th e bilateral kidneys with some interval progression in number from the 2016 CT. No calculus in the ure ters. No calculus or suspicious mass in the bladder. LUNG BASES: Coronary artery calcification in the LAD distribution is seen. LIVER/GB: Scattered tiny subcentimeter thin-walled cysts throughout the liver are redemonstrated. PANCREAS: No significant abnormality is seen. SPLEEN: Spleen surgically absent with several small remnant splenules is redemonstrated. ADRENALS: No significant abnormality is seen. BOWEL: No significant abnormality is seen. PROSTATE/SEMINAL VESICLES: Prostate gland normal in size. Scattered bilateral pelvic phleboliths rede monstrated. LYMPH NODES: No greater than 1cm abdominal or pelvic lymph nodes are appreciated. OSSEOUS STRUCTURES: Moderate to severe disc space narrowing with vacuum disc phenomenon at lumbosacra l junction. OTHER: No significant additional abnormality is seen. IMPRESSION: Underlying adult type polycystic kidney disease is suspected. Persistent bilateral nephro lithiasis. No concerning solid mass or hydronephrosis seen bilaterally.
== END | disposition home or self-care (01) ==
LOC: RADCTMAIN 13:55
PROVIDERS: ATTEND Urology
DX: N20.0 Calculus of kidney (principal); Z87.442 Personal history of urinary calculi
CPT/HCPCS: 74178; 74400; Q9967

== ENCOUNTER → 2022-03-11 | Outpatient (CLI) | payer BC ==
[2022-03-11 18:35] LABS: African American GFR (CKD) 89.6 (60.0-200.0); Anion Gap 12.2 mmol/L (10.00-18.00); Calcium 8.9 mg/dL (8.7-10.3); Carbon Dioxide 24.5 mmol/L (20.0-27.5); Non-African American GFR(CKD) 77.3 (60.0-200.0); Potassium 3.8 mmol/L (3.5-5.5)
[2022-03-11 19:43] LABS: Appearance,Urine Clear (Clear); Bilirubin,Urine Negative (Negative); Blood,Urine Trace (Negative); Color,Urine Yellow (Yellow); Ketones,Urine Trace mg/dL (Negative); Nitrite,Urine Negative (Negative); PH, Urine 5.5 (5.0-8.0)
[2022-03-11 19:51] LABS: Bacteria,Urine None Seen /HPF (None Seen)
[2022-03-11 19:57] LABS: Basophils # (A) 0.08 X 10*3/uL (0.00-0.10); Basophils % (A) 1.4 %; Eosinophils # (A) 0.24 X 10*3/uL (0.04-0.35); Eosinophils % (A) 4.2 %; HCT 45.3 % (39.6-50.0); HGB 15.1 g/dL (13.0-17.0); Immature Grans, Automated 0.3 %; Lymphocytes # (A) 1.77 X 10*3/uL (0.90-5.00); Lymphocytes % (A) 30.8 %; MCHC 33.3 g/dL (32.0-37.0); MCV 89.9 fL (80.0-97.0); Mean Platelet Volume 11.3 fL (9.5-12.2); Monocytes # (A) 0.72 X 10*3/uL (0.20-1.00); Monocytes % (A) 12.5 %; NRBC Per 100 WBC 0 /100 WBCS (0.0-0.0); Neutrophils # (A) 2.92 X 10*3/uL (1.80-7.70); Neutrophils % (A) 50.8 %; Platelet Count 163 X 10*3/uL (140-440); RBC 5.04 X 10*6/uL (4.40-5.60); RDW 13.4 % (11.5-14.5); WBC 5.75 X 10*3/uL (4.50-10.00)
== END | disposition home or self-care (01) ==
LOC: LABPAT 10:59
PROVIDERS: ATTEND Urology
DX: Z01.812 Encounter for preprocedural laboratory examination (principal); N20.0 Calculus of kidney
CPT/HCPCS: 36415; 80048; 81001; 85025; 87086

== ENCOUNTER 2022-03-18 09:58 | Observation (INO) | payer BC ==
[2022-03-17 08:32] VITALS: BMI 37.3
[~2022-03-18 09:58] MED LIST: DEXAMETHASONE SOD PHOSPHATE 4 MG/ML 1 ML VIAL IV ONE; LIDOCAINE 1% (10MG/ML) FOR IV START INTRADERMA PRN; MIDAZOLAM 2 MG/2 ML VIAL IV PRN; ONDANSETRON 4 MG/2 ML VIAL IVP ONE; ceFAZolin 3 GM in SODIUM CHLORIDE 0.9% 100 ML IVPB PRN
--- NOTE | 2022-03-18 10:31 | XR ---
EXAMINATION TYPE: XR KUB DATE OF EXAM: 03/18/2022 HISTORY: N20.0 right renal stone Comparison: CT urogram 01/22/2022 Technique: Supine KUB with 2 radiographs. Findings: Redemonstration of 2.6 cm calcification within the superior pole of the right kidney with additional 1 cm calculus within the inferior pole of the right kidney. Redemonstration of a 1.7 cm calculus with in the inferior pole of the left kidney. Multiple pelvic phleboliths. Nonobstructive bowel gas pattern. No acute osseous abnormality. IMPRESSION: Bilateral renal calculi as described above.
[2022-03-18] MEDS: LACTATED RINGERS 1,000 ML IV SCH (11:30)
[2022-03-18] MEDS ORDERED: GLYCOPYRROLATE 0.2 MG/ML 2 ML VIAL ONE (12:33)
[2022-03-18] MEDS ORDERED: PROPOFOL 10 MG/ML 20 ML VIAL IV ONE (12:33)
[2022-03-18] MEDS ORDERED: SUCCINYLCHOLINE CHLORIDE 200 MG/10 ML VIAL IV ONE (12:33)
[2022-03-18] MEDS ORDERED: LIDOCAINE 2% INJ 20 MG/ML (2 ML VIAL) ONE (12:33)
[2022-03-18] MEDS ORDERED: PHENYLEPHRINE-0.9% NACL SYG 1,000 MCG/10 ML SYRINGE ONE (12:33)
[2022-03-18] MEDS ORDERED: MIDAZOLAM 2 MG/2 ML VIAL ONE (12:33)
[2022-03-18] MEDS ORDERED: ROCURONIUM 10 MG/ML (5 ML VIAL) IV ONE (12:33)
[2022-03-18] MEDS ORDERED: fentaNYL (PF) 50 MCG/ML 2 ML AMP ONE (12:33)
[2022-03-18] MEDS ORDERED: NEOSTIGMINE 1 MG/ML 10 ML VIAL ONE (12:33)
[2022-03-18] MEDS ORDERED: REQUIP PO PRN (12:41)
--- NOTE | 2022-03-18 12:41 | P.HPIHPCON ---
History of Present Illness H&P Date: 03/18/22 Chief Complaint: right renal stone this is a 52-year-old male with history of a 2.6 cm right-sided upper pole stone, an additional 1 cm right lower pole stone. He is symptomatic from his stone. Option of a right-sided PCNL was discussed with him. Risk of bleeding, infection, injury to the kidney was discussed. Discussed also risk of injury to nearby organs which includes but not limited to the liver, bowel and lung. Consent for Procedure: I have explained the operation/procedure to the patient, including the risks, benefits, side effects, alternative therapies (including not receiving the proposed treatment or service), the likelihood of the patient achieving his/her goals, and potential recuperation problems for the procedure/sedation/analgesia, as well as any blood products, if indicated. I also explained to the patient the risks, benefits and side effects of the alternatives, as well as the risks related to not receiving the proposed procedure, care, treatment, or services. Past Medical History Past Medical History: Blood Disorder, Deep Vein Thrombosis (DVT), Prostate Disorder, Sleep Apnea/CPAP/BIPAP Additional Past Medical History / Comment(s): ITP blood disorder., RLS., sleep apnea (no machine), states back problems., BPH, kidney stones., eczema., hx DVT (2018) . History of Any Multi-Drug Resistant Organisms: MRSA Date of last positivie culture/infection: 11/23/17 MDRO Source:: GROIN Past Surgical History: Orthopedic Surgery, Tonsillectomy Additional Past Surgical History / Comment(s): splenectomy 2007, repair R knee meniscus, DEVIATED SEPTUM Past Anesthesia/Blood Transfusion Reactions: No Reported Reaction Additional Past Anesthesia/Blood Transfusion Reaction / Comment(s): no hx of blood transfusion Past Psychological History: No Psychological Hx Reported Smoking Status: Never smoker Past Alcohol Use History: Rare Past Drug Use History: None Reported - Past Family History Father Family Medical History: AFIB, AICD/Pacemaker, Cancer Additional Family Medical History / Comment(s): Prostate CA, skin CA Mother Family Medical History: No Reported History Medications and Allergies Home Medications Medication Instructions Recorded Confirmed Type Ibuprofen [Motrin Ib] 800 mg PO DIRECTED PRN 03/17/22 03/18/22 History Requip (Unknown Dose) 1 dose PO HS PRN 03/17/22 03/18/22 History Allergies Allergy/AdvReac Type Severity Reaction Status Date / Time sulfamethoxazole Allergy Rash/Hives Verified 03/18/22 11:23 [From Bactrim] trimethoprim [From Bactrim] Allergy Rash/Hives Verified 03/18/22 11:23 Surgical - Exam Vital Signs Temp Pulse Resp BP Pulse Ox 97.2 F L 65 16 141/79 100 03/18/22 11:30 03/18/22 11:30 03/18/22 11:30 03/18/22 11:30 03/18/22 11:30 - General no distress, moderate pain - Eyes normal ocular movement, no pale - ENT normal nares, normal mucosa - Respiratory normal expansion, normal respiratory effort - Abdomen Abdomen: soft, non tender Assessment and Plan Assessment: OR for right-sided PCNL
[2022-03-18] MEDS ORDERED: ONDANSETRON 4 MG/2 ML VIAL IVP PRN (12:42)
[2022-03-18] MEDS ORDERED: ACETAMINOPHEN TAB 325 MG TAB PO PRN (12:42)
[2022-03-18] MEDS ORDERED: MAG HYDROX/AL HYDROX/SIMETH 30 ML CUP PO PRN (12:42)
[2022-03-18] MEDS ORDERED: IOPAMIDOL-300 50ML BTL MISCELLANE ONE ×2 (12:45→13:44)
[2022-03-18] MEDS ORDERED: LACTATED RINGERS 1,000 ML IV ONE (14:28)
--- NOTE | 2022-03-18 15:04 | P.OP ---
Date of Procedure: 03/18/22 Preoperative Diagnosis: Right renal stone Postoperative Diagnosis: Same Procedure(s) Performed: Cystoscopy, right ureteral catheterization, right percutaneous nephrolithotomy, antegrade nephrostogram, and nephrostomy tube placement Implants: None Anesthesia: ROCK Surgeon: Chirag Ritchie Estimated Blood Loss (ml): 150 Pathology: other (right renal stone) Condition: stable Disposition: PACU Indications for Procedure: this is a 52-year-old male with history of a 2.6 cm right-sided upper pole stone, an additional 1 cm right lower pole stone. He is symptomatic from his stone. Option of a right-sided PCNL was discussed with him. Risk of bleeding, infection, injury to the kidney was discussed. Discussed also risk of injury to nearby organs which includes but not limited to the liver, bowel and lung. Operative Findings: Large stone in the upper pole, additional stone in the lower pole Description of Procedure: Patient brought to the operating room, general anesthesia was induced. He was prepped and draped and placed in frog leg position on the stretcher. At this time a cystoscopy fitted with 21-Cymraes sheath was inserted per urethra, cystoscopy was performed which showed no abnormality within the bladder. The right ureteral orifice was visualized and intubated with a sensor wire. At this time a balloon occlusion catheter was placed over the wire up. A Umana catheter was placed and the occlusion balloon catheter was secured to the Umana. At this time the patient was placed in prone position. The right flank was prepped and draped in sterile fashion. Access to the kidney was obtained by Dr. Ozuna, please see his portion of the dictation for that part of the surgery. Access was above the 12th rib. After 2 wire were placed down the ureter at this time under fluoroscopy a 30-Cymraes NephroMax balloon was inflated along the tract under fluoroscopy. Next a 30-Cymraes access sheath was passed over the balloon. At this time the nephroscope was placed through the access sheath, renoscopy was performed which showed a large stone within the upper pole. Using the ultrasound lithotripter stone was fragmented. Fragments were removed using the grasper. Repeat renoscopy showed no additional stones within the upper pole. At this time I switched to a flexible cystoscope which was advanced through the access sheath, renoscopy was performed which showed an additional large stone within the lower pole that was basketed using ZeroTip basket and removed intact. Repeat renoscopy showed no additional stones within the kidney. The cystoscope was advanced down the proximal ureter which showed no stones along the course of the ureter. At this time a 12-Cymraes nephrostomy tube was placed over the wire, antegrade nephrostogram was performed which showed no filling defect or evidence of contrast extravasation, contrast was seen going down the ureter. The incision was closed using 2-0 Vicryl. The nephrostomy tube was secured to the skin using 2-0 silk. Sterile dressing was applied to the nephrostomy tube. Patient tolerated the procedure well was taken to recovery in stable condition
[2022-03-18] MEDS: HYDROmorphone 0.5 MG/0.5 ML SYRINGE IVP PRN ×3 (15:06→16:30)
[2022-03-18] MEDS ORDERED: KETOROLAC 15 MG/ML 1 ML VIAL IVP ONE (15:09)
--- NOTE | 2022-03-18 15:20 | FL ---
EXAMINATION TYPE: FL Perc Nephrostomy New Access DATE OF EXAM: 03/18/2022 COMPARISON: NONE HISTORY: Right renal stone Procedure had been discussed with the patient by Dr. Ritchie risks, benefits, alternatives, were discu ssed and any questions were answered. Informed consent was obtained. The patient was in a semiprone position prepped and draped on the OR table in the usual sterile fashion. Utilizing a 15 cm length Chiba needle a single pass was made into a upper pole posterior calyx under fluoroscopic guidance. A n 0.018 guidewire is passed through the needle and there was placement of a 6-Malay catheter sheath system. There was conversion to a 0.035 system was performed with passage of a guidewire into the u reter utilizing a directional catheter. A second safety wire was placed. Remaining portion of proce dure performed by . Approximately 4 minutes and 4 seconds of fluoroscopy was provided. IMPRESSION: 1. Successful intraoperative right nephrostomy prior to nephrolithotomy.
[2022-03-18] MEDS: KETOROLAC 15 MG/ML 1 ML VIAL IVP SCH (17:32)
[2022-03-18] MEDS: HEPARIN SODIUM,PORCINE/PF 5,000 UNIT/0.5 ML SYRINGE SQ SCH (17:33)
[2022-03-18] MEDS ORDERED: HYDROmorphone 1 MG/ML 1 ML SYRINGE IVP PRN (17:38)
[2022-03-18] MEDS: HYDROcodone/APAP 5-325MG 1 EACH TAB PO PRN (21:09)
[2022-03-18] MEDS: DEXTROSE 5%-0.45% NACL 1,000 ML IV SCH ×2 (22:33→22:34)
[2022-03-19] MEDS: KETOROLAC 15 MG/ML 1 ML VIAL IVP SCH ×5 (00:26→23:47)
[2022-03-19] MEDS: HEPARIN SODIUM,PORCINE/PF 5,000 UNIT/0.5 ML SYRINGE SQ SCH ×4 (00:27→23:47)
[2022-03-19] MEDS: HYDROcodone/APAP 5-325MG 1 EACH TAB PO PRN ×2 (06:21→21:59)
[2022-03-19] MEDS: LACTATED RINGERS 1,000 ML IV SCH (06:24)
--- NOTE | 2022-03-19 08:51 | XR ---
EXAMINATION TYPE: XR chest 1V portable DATE OF EXAM: 03/19/2022 COMPARISON: 09/27/2017 HISTORY: Increased pain TECHNIQUE: Single frontal view of the chest is obtained. FINDINGS: There is subsegmental changes at both lung bases. No sizable pleural effusion or pneumotho rax. Heart size is stable. No pneumothorax. IMPRESSION: 1. Basilar subsegmental consolidation may be on the basis of atelectasis rather than early pneumonia or aspiration correlate clinically. No sizable pneumothorax or pleural effusion.
[2022-03-19] MEDS: DEXTROSE 5%-0.45% NACL 1,000 ML IV SCH ×2 (12:34→21:35)
--- NOTE | 2022-03-19 13:17 | P.PN ---
Subjective Progress Note Date: 03/19/22 Principal diagnosis: Right renal stone The patient is a 52-year-old male with history of a 2.6 cm right-sided upper pole stone, and additional 1 cm right lower pole stone. He was symptomatic from his stone. On 03/18/22 he underwent an elective cystoscopy, right ureteral catheterization, right percutaneous nephrolithotomy, antegrade nephrostogram, and nephrostomy tube placement. The patient tolerated the procedure well was taken to recovery in stable condition. Objective - Vital Signs Vital signs: Vital Signs Temp 98.1 F 03/19/22 07:36 Pulse 71 03/19/22 07:36 Resp 17 03/19/22 07:36 BP 146/87 03/19/22 07:36 Pulse Ox 93 L 03/19/22 07:36 FiO2 Intake & Output 03/18/22 03/19/22 03/19/22 18:59 06:59 18:59 Intake Total 1650 Output Total 150 1150 Balance 1500 -1150 Weight 158 kg Intake: IV 1650 Output: Drainage 550 Right FLANK 550 Urine 600 Estimated Blood Loss 150 Other: Voiding Method Indwelling Catheter - Exam General: Well developed, well nourished. No acute distress. HEENT: Head is atraumatic, normocephalic. Lungs: Respirations even and nonlabored. On : Umana catheter resent draining yellow urine with sediment. Nephrostomy tube draining dark red bloody urine. Skin: Warm and dry Neurologic: Awake, alert and oriented times 3. CN II-XII grossly intact. No focal deficits. Psychiatric: Appropriate mood and affect. Assessment and Plan Assessment: The patient states he has had some moderate discomfort from the nephrostomy tube overnight. The dressing around the nephrostomy tube had bloody drainage and was changed this morning by Dr. Ritchie. It is draining dark red bloody urine. The patient was encouraged to increase his fluid intake. His Umana catheter was removed this morning. He is DTV. He is tolerating a diet well and denies any nausea or vomiting. CXR reviewed, no pneumothorax, basilar atelactasis present. He has not been out of bed yet. He was instructed to ambulate in the hallway and use his incentive spirometer 10 x hr while awake. He is afebrile. (1) Right renal stone Current Visit: Yes Status: Acute Code(s): N20.0 - CALCULUS OF KIDNEY SNOMED Code(s): 77894413 Plan: - Keep patient overnight for pain control - Continue current pain regimen - Monitor drainage from nephrostomy tube - Increase fluid intake - Ambulate in hallway - IS 10 x hour Anticipate discharge in the next 24 hours Impression and plan of care have been directed as dictated by the signing physician. Maddy Garrison nurse practitioner acting as scribe for signing physician. Maddy Garrison [facility] Palliative Care/[facility] [id number] Email: [email or web address]
[2022-03-20] MEDS: LACTATED RINGERS 1,000 ML IV SCH (05:25)
[2022-03-20] MEDS: KETOROLAC 15 MG/ML 1 ML VIAL IVP SCH (05:29)
[2022-03-20] MEDS: DEXTROSE 5%-0.45% NACL 1,000 ML IV SCH (05:32)
[2022-03-20 07:54] VITALS: BP 154/94; PULSE 52; RESP 15; TEMP 97.7
[2022-03-20] MEDS: HEPARIN SODIUM,PORCINE/PF 5,000 UNIT/0.5 ML SYRINGE SQ SCH (08:07)
--- NOTE | 2022-03-20 09:06 | P.DS ---
Providers Date of admission: 03/20/22 07:52 Expected date of discharge: 03/20/22 Attending physician: Chirag Ritchie MD Primary care physician: Ann Smith - Discharge Diagnosis(es) (1) Right renal stone Current Visit: Yes Status: Acute Hospital Course: The patient is a 52-year-old male with history of a 2.6 cm right-sided upper pole stone, and additional 1 cm right lower pole stone. He was symptomatic from his stone. On 03/18/22 he underwent an elective cystoscopy, right ureteral catheterization, right percutaneous nephrolithotomy, antegrade nephrostogram, and nephrostomy tube placement. The patient tolerated the procedure well was taken to recovery in stable condition. POD#1 the patient had some moderate discomfort from the nephrostomy tube. The nephrostomy tube was draining dark red bloody urine. The patient was encouraged to increase his fluid intake. His Umana catheter was removed and he is voiding without difficulty. CXR reviewed, no pneumothorax, basilar atelactasis present. POD#2 The patient was seen up walking around in his room. He is tolerating a diet well and denies any nausea or vomiting. He states his pain is well managed. He reports some hematuria. Nephrostomy tube insertion site dressing has a small amount of sero/sang drainage. 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 He states he is ready to go home. Prescriptions for Toradol, Marshallberg, and Senokot sent to his pharmacy. He was instructed to follow-up with Dr. Ritchie in 1 week. Patient Condition at Discharge: Good Plan - Discharge Summary Discharge Rx Participant: Yes New Discharge Prescriptions: New Ketorolac [Toradol] 10 mg PO Q6HR PRN #10 tab PRN Reason: Pain Sennosides-Docusate Sodium [Senokot-S] 1 tab PO DAILY #7 tablet HYDROcodone/APAP 5-325MG [Marshallberg 5-325] 1 tab PO Q6HR PRN 3 Days #10 tab PRN Reason: Pain Continue Requip (Unknown Dose) 1 dose PO HS PRN PRN Reason: rls Discontinued Ibuprofen [Motrin Ib] 800 mg PO DIRECTED PRN PRN Reason: Pain Discharge Medication List Requip (Unknown Dose) 1 dose PO HS PRN 03/17/22 [History] HYDROcodone/APAP 5-325MG [Marshallberg 5-325] 1 tab PO Q6HR PRN 3 Days #10 tab 03/20/22 [Rx] Ketorolac [Toradol] 10 mg PO Q6HR PRN #10 tab 03/20/22 [Rx] Sennosides-Docusate Sodium [Senokot-S] 1 tab PO DAILY #7 tablet 03/20/22 [Rx] Follow up Appointment(s)/Referral(s): Chirag Ritchie MD [STAFF PHYSICIAN] - 1 Week Patient Instructions/Handouts: Nephrostomy Tube Care (DC) Activity/Diet/Wound Care/Special Instructions: - No heavy lifting, straining, or strenuous activity - Take pain medication as prescribed for discomfort - You may shower, no tub baths - It is normal to have blood in your urine - Increase your fluid intake - You may change the dressing around the tube as needed - Follow up with the physician in the office in one week for tube removal Discharge Disposition: HOME SELF-CARE
== END 2022-03-20 11:39 | disposition home or self-care (01) ==
LOC: OR 09:58 → 4SSUR 15:00 → OR 03-20 07:43 → 4SSUR 03-20 07:52
PROVIDERS: ADMIT Urology; ATTEND Urology
DX: N20.0 Calculus of kidney (principal); D69.3 Immune thrombocytopenic purpura; Z86.718 Personal history of other venous thrombosis and embolism; N40.0 Benign prostatic hyperplasia without lower urinary tract symptoms; G47.33 Obstructive sleep apnea (adult) (pediatric); G25.81 Restless legs syndrome; L30.9 Dermatitis, unspecified; Z86.14 Personal history of Methicillin resistant Staphylococcus aureus infection; Z98.890 Other specified postprocedural states; Z82.49 Family history of ischemic heart disease and other diseases of the circulatory system; Z80.42 Family history of malignant neoplasm of prostate; Z80.8 Family history of malignant neoplasm of other organs or systems; Z88.2 Allergy status to sulfonamides
CPT/HCPCS: 86900; 86901; 86850; 82365; 50432; 71045; 74018; 50081; G0378; C2628; C1769 ×6; C1758; C1894; C1729; J2250; J0330; J1100; J2710; J0690; J2405; J3010; J1170 ×2; J1885 ×3; J2370; J2704; Q9967; J1644 ×2; J2001

== ENCOUNTER → 2022-04-10 | Outpatient (CLI) | payer BC ==
--- NOTE | 2022-04-10 11:01 | US ---
EXAMINATION TYPE: US kidneys/renal and bladder DATE OF EXAM: 04/10/2022 COMPARISON: CT urogram 01/22/2022 CLINICAL HISTORY: N20.0 CALCULUS OF KIDNEY. Surgery to remove right stone 03/18/22 EXAM MEASUREMENTS: Right Kidney: 14.0 x 6.8 x 7.2 cm Left Kidney: 14.4 x 5.9 x 7.2 cm technical limitations due to patient's body habitus and large amount of overlying bowel content Right Kidney: multiple echogenic foci noted, largest = 1.0cm Left Kidney: probable cystic area upper pole = 2.0cm. echogenic foci noted, largest = 1.5cm Bladder: appears wnl Bilateral Jets seen: no IMPRESSION: Multiple bilateral renal calculi and cysts similar prior CT. No evidence of obstructive uropathy.
== END | disposition home or self-care (01) ==
LOC: RADUSWWP 08:59
PROVIDERS: ATTEND Urology
DX: N20.0 Calculus of kidney (principal); N28.1 Cyst of kidney, acquired
CPT/HCPCS: 76770

== ENCOUNTER → 2022-04-10 | Outpatient (CLI) | payer BC ==
--- NOTE | 2022-04-10 13:56 | XR ---
EXAMINATION TYPE: XR chest 2V DATE OF EXAM: 04/10/2022 1:28 PM COMPARISON: Chest radiographs from 03/19/2022 TECHNIQUE: XR chest 2V Frontal and lateral views of the chest. CLINICAL INDICATION:Male, 52 years old with history of [id number] SOB; FINDINGS: Lungs/Pleura: Bibasilar atelectasis. Low lung volumes. No evidence for pneumothorax, pleural effusion or focal consolidation. Pulmonary vascularity: Unremarkable. Heart/mediastinum: Cardiomediastinal silhouette is unremarkable. Musculoskeletal: No acute osseous pathology. IMPRESSION: No acute cardiopulmonary disease/process.
== END | disposition home or self-care (01) ==
LOC: RADXRYALE 13:10
PROVIDERS: ATTEND Urology
DX: R06.02 Shortness of breath (principal)
CPT/HCPCS: 71046